=== PATIENT | female | born 1965 | race Hispanic/Latino ===

== ENCOUNTER 2021-01-05 12:40 | Emergency (ER) | payer SELFPAY ==
--- NOTE | 2021-01-05 13:39 | RAD REPORT ---
EXAM DESCRIPTION: CT - Head Brain Wo Cont - 01/05/2021 1:25 pm CLINICAL HISTORY: headdate, dizziness COMPARISON: HEAD BRAIN W O CONTRAST dated 12/29/2007 TECHNIQUE: Axial 5 mm thick images of the head were obtained without IV contrast. All CT scans are performed using dose optimization technique as appropriate and may include automated exposure control or mA/KV adjustment according to patient size. FINDINGS: No intracranial hemorrhage, mass, edema or shift of mid-line structures. No acute infarcti on changes seen. No abnormal extra-axial fluid collections. Ventricles are normal. No measurable atro phy or chronic ischemic change. Physiologic calcifications are present. Mastoid air cells and visualized portions of the paranasal sinuses are clear. No acute bony findings. IMPRESSION: Negative non-contrast CT head examination.
[2021-01-05] MEDS ORDERED: NA CHLORIDE 0.9% 500 ML ONE (13:51)
[2021-01-05] MEDS ORDERED: MORPHINE 4 MG/ML SYR ONE (13:51)
[2021-01-05] MEDS ORDERED: ONDANSETRON 4 MG/2 ML VIAL ONE (13:51)
--- NOTE | 2021-01-05 14:05 | RAD REPORT ---
EXAM DESCRIPTION: RAD - Chest Single View - 01/05/2021 1:58 pm CLINICAL HISTORY: SOB, recent positive COVID diagnosis COMPARISON: CT chest January 03, portable chest January 03 TECHNIQUE: AP portable chest image was obtained 01/05/2021 1:58 pm . FINDINGS: Minimal interstitial and patchy alveolar opacities are present in the lower left lung fiel d. Pattern is similar or slightly less prominent than seen on the CT study. There is minimal left bas e atelectasis at the diaphragm. No failure or volume overload. Heart and vasculature are normal. No measurable pleural effusion and no pneumothorax. No acute bony abnormality seen. No acute aortic findings suspected. IMPRESSION: Remnant pneumonia in the lower left lung field. No new or progressive finding from prior studies.
[2021-01-05 14:36] LABS: Protime INR 1.09
[2021-01-05 14:41] LABS: Absolute Lymphocytes (CBC) 0.9 K/uL (0.7-4.9); Basophils % 0.1 % (0-1.3); Hematocrit 41.6 % (36.0-45.0); Lymphocytes % 18.7 % (15.3-44.8); MPV 9.3 fL (7.6-11.3); RBC Red Blood Cell Count 4.59 M/uL (3.86-4.86)
[2021-01-05 14:49] LABS: Albumin 3.7 g/dL (3.4-5.0); Bilirubin Direct 0.1 mg/dL (0-0.2); Bilirubin Total 0.4 mg/dL (0.2-1.0); Potassium 3.3 mmol/L (3.5-5.1); Protein, Total 8.2 g/dL (6.4-8.2); Troponin (Emerg Dept Use Only) 0.07 ng/mL (0.0-0.045)
--- NOTE | 2021-01-05 15:30 | RAD REPORT ---
EXAM DESCRIPTION: CT - Chest For Pe Angio - 01/05/2021 3:21 pm CLINICAL HISTORY: chest pain, sob COMPARISON: Chest For Pe Angio dated 01/03/2021; Chest Single View dated 01/05/2021 TECHNIQUE: Dynamically enhanced 3 mm thick images of the chest were obtained during administration o f approximately 150mL Isovue 370 IV contrast. Coronal and oblique MIP reconstruction images were gene rated and reviewed. Exam utilizes a protocol to evaluate the pulmonary arterial tree. All CT scans are performed using dose optimization technique as appropriate and may include automated exposure control or mA/KV adjustment according to patient size. FINDINGS: No pulmonary emboli are identified. The aorta as imaged shows no acute or suspicious finding. No pericardial thickening or effusion. Scattered ground-glass and alveolar opacities are present throughout the lung whiteside primarily in a p eripheral distribution. Findings are more pronounced in each posterior gutter. History indicates a re cent COVID-19 infection. No pleural effusion or pleural thickening. No mediastinal or hilar suspicious masses. No chest wall masses or abnormal axillary lymphadenopathy. Heart size is prominent. No pericardial effusion. IMPRESSION: No pulmonary emboli identified. Mild to moderate COVID-19 pneumonia pattern.Pattern is similar to the January 03 CT chest study.
[2021-01-05] MEDS ORDERED: FENTANYL CITR 100 MCG/2 ML ONE (15:33)
--- NOTE | 2021-01-05 15:34 | RAD REPORT ---
EXAM DESCRIPTION: CT - Abdomen Pelvis W Contrast - 01/05/2021 3:21 pm CLINICAL HISTORY: ABD PAIN COMPARISON: No comparisons TECHNIQUE: Biphasic, helical CT imaging of the abdomen and pelvis was performed following 100 ml non -ionic IV contrast. No oral contrast administered. All CT scans are performed using dose optimization technique as appropriate and may include automated exposure control or mA/KV adjustment according to patient size. FINDINGS: Bilateral lung base pneumonia findings are detailed in separate report. The liver, spleen, and pancreas show no suspicious findings. Liver shows a diffuse fatty infiltration pattern. Cholecystectomy clips are present. Biliary tree dilatation present. Biliary dilatation with in normal range for post cholecystectomy status. Symmetric renal function is seen with no hydronephrosis or suspicious renal mass. No pyelonephritis o r acute parenchymal process. No bladder abnormalities. No adrenal abnormalities. Approximately 4 cent imeter fundal fibroid present in the uterus. Right ovary is unremarkable. Left ovary appears to be cl osely approximated to the lateral margin of the uterus. A 2 centimeter rounded mass pelvic side wall on the left is favored to be lymph node. No other adenopathy is seen. This lymph node is nonspecific. No gross evidence for cervical abnormality. No dilated bowel loops or bowel wall thickening. No free air, free fluid or inflammatory stranding. No hernia, mass or bulky lymphadenopathy. No suspicious bony findings. IMPRESSION: Contrast enhanced CT abdomen and pelvis showing no acute or emergent finding. Nonacute findings detailed in the body of the report.
[2021-01-05 15:35] LABS: Blood Morphology Comment NOT SEEN (NOT SEEN); Platelet Estimate DECR; White Blood Cell Scan OK (OK)
--- NOTE | 2021-01-05 16:36 | P.CNS ---
Date of Consult: 01/05/21 Reason for Consult: ER evaluation Requesting Physician: Sachin Berger Primary Care Provider: Justine Lopez NP Chief Complaint: Fatigue, headache, muscle aches History of Present Illness: 55-year-old female with history of hypertension presented to the emergency room with fatigue, arthralgias, headache. Patient was recently admitted and discharge yesterday for Covid pneumonia. Patient was sent home with vitamin supplementation. No need for steroids was required. Her medications were adjusted due to low blood pressure. Since that time she has been noticing some headaches with fatigue. Daughter has given patient some Tylenol. She came to the ER for further evaluation. Extensive work-up in the ER was done. Patient was hypoxic. Blood pressure slightly elevated. Heart rate around 100-110. BMP improved since last visit. CBC improved since last visit. CT chest shows no significant change since January 03. CT abdomen unremarkable except fatty liver and fibroid uterus. CT head unremarkable. I was asked to evaluate patient for recommendations and consider treatment. Allergies Penicillins Allergy (Verified 01/03/21 20:21) Itching/Hives/Rash Home medications list reviewed: Yes Home Medications: Ascorbic Acid [Vitamin C*] 500 mg PO TID #90 tablet 01/04/21 Cholecalciferol (Vitamin D3) [Vitamin D 1000 Iu Tab*] 2,000 unit PO DAILY #60 tab 01/04/21 Metoprolol Tartrate 12.5 mg PO DAILY #30 tablet 01/04/21 Thiamine HCl [Vitamin B-1*] 100 mg PO DAILY #30 tablet 01/04/21 Zinc Sulfate [Zinc Sulfate*] 220 mg PO DAILY #30 cap 01/04/21 - Past Medical/Surgical History -: Hypertension -: History of breast cancer -: Fibroid uterus -: Fatty liver -: Right mastectomy -: Cholecystectomy -: Port-A-Cath insertion/removal Psychosocial/ Personal History: Unemployed, lives at home with her and family - Family History Mother Medical History: Hypertension, Cancer - Social History Smoking Status: Never smoker Alcohol use: No CD- Drugs: No Caffeine use: Yes Place of Residence: Home Review of Systems General: Chills, Weakness, Malaise Eyes: Unremarkable ENT: Unremarkable Respiratory: As per HPI Cardiovascular: Unremarkable Gastrointestinal: Unremarkable Genitourinary: Unremarkable Musculoskeletal: Back Pain, As per HPI Integumentary: Unremarkable Neurological: Weakness, Other Lymphatics: Unremarkable Physical Examination Laboratory Data (last 24 hrs) 01/05/21 14:10: PT 12.6 H, INR 1.09 01/05/21 14:10: WBC 4.70 D, Hgb 14.1, Hct 41.6, Plt Count 91 L 01/05/21 14:10: Sodium 137, Potassium 3.3 L, BUN 6 L, Creatinine 0.68, Glucose 108 H, Magnesium 2.0, Total Bilirubin 0.4, AST 30, ALT 35, Alkaline Phosphatase 87 Conclusions/Impression: COVID: Positive CT Chest 01/03/2021: COMPARISON: RAD THERAPY [facility] dated 02/01/2015 TECHNIQUE: CT angiogram of the pulmonary arteries was performed with MIP. All CT scans are performed using dose optimization technique as appropriate and may include automated exposure control or mA/KV adjustment according to patient size. FINDINGS: No evidence of pulmonary thromboembolism. No acute aortic finding demonstrated. Mild to moderate bilateral pulmonary opacities are present, greatest in the posterior lung bases, likely related to COVID-19 infection. No significant pericardial or pleural fluid. No concerning bony finding. Right mastectomy noted IMPRESSION: No evidence of pulmonary thromboembolism. [id number] pulmonary infiltrates likely related COVID-[address] Chest 01/05/2021: COMPARISON: Chest For Pe Angio dated 01/03/2021; Chest Single View dated 01/05/2021 TECHNIQUE: Dynamically enhanced 3 mm thick images of the chest were obtained during administration of approximately 150mL Isovue 370 IV contrast. Coronal and oblique MIP reconstruction images were generated and reviewed. Exam utilizes a protocol to evaluate the pulmonary arterial tree. All CT scans are performed using dose optimization technique as appropriate and may include automated exposure control or mA/KV adjustment according to patient size. FINDINGS: No pulmonary emboli are identified. The aorta as imaged shows no acute or suspicious finding. No pericardial thickening or effusion. Scattered ground-glass and alveolar opacities are present throughout the lung whiteside primarily in a peripheral distribution. Findings are more pronounced in each posterior gutter. History indicates a recent COVID-19 infection. No pleural effusion or pleural thickening. No mediastinal or hilar suspicious masses. No chest wall masses or abnormal axillary lymphadenopathy. Heart size is prominent. No pericardial effusion. IMPRESSION: No pulmonary emboli identified. Mild to moderate COVID-19 pneumonia pattern.Pattern is similar to the January [address] Ab: COMPARISON: No comparisons TECHNIQUE: Biphasic, helical CT imaging of the abdomen and pelvis was performed following 100 ml non-ionic IV contrast. No oral contrast administered. All CT scans are performed using dose optimization technique as appropriate and may include automated exposure control or mA/KV adjustment according to patient size. FINDINGS: Bilateral lung base pneumonia findings are detailed in separate report. The liver, spleen, and pancreas show no suspicious findings. Liver shows a diffuse fatty infiltration pattern. Cholecystectomy clips are present. Biliary tree dilatation present. Biliary dilatation within normal range for post cholecystectomy status. Symmetric renal function is seen with no hydronephrosis or suspicious renal mass. No pyelonephritis or acute parenchymal process. No bladder abnormalities. No adrenal abnormalities. Approximately 4 centimeter fundal fibroid present in the uterus. Right ovary is unremarkable. Left ovary appears to be closely approximated to the lateral margin of the uterus. A 2 centimeter rounded mass pelvic side wall on the left is favored to be lymph node. No other adenopathy is seen. This lymph node is nonspecific. No gross evidence for cervical abnormality. No dilated bowel loops or bowel wall thickening. No free air, free fluid or inflammatory stranding. No hernia, mass or bulky lymphadenopathy. No suspicious bony findings. IMPRESSION: Contrast enhanced CT abdomen and pelvis showing no acute or emergent finding. Nonacute findings detailed in the body of the report. CT Head: COMPARISON: HEAD BRAIN W O CONTRAST dated 12/29/2007 TECHNIQUE: Axial 5 mm thick images of the head were obtained without IV contrast. All CT scans are performed using dose optimization technique as appropriate and may include automated exposure control or mA/KV adjustment according to patient size. FINDINGS: No intracranial hemorrhage, mass, edema or shift of mid-line structures. No acute infarction changes seen. No abnormal extra-axial fluid collections. Ventricles are normal. No measurable atrophy or chronic ischemic change. Physiologic calcifications are present. Mastoid air cells and visualized portions of the paranasal sinuses are clear. No acute bony findings. IMPRESSION: Negative non-contrast CT head examination. Physical Exam: GENERAL: The patient is a well-developed, well-nourished, in no apparent distress. Alert and oriented x3. Mild elevated blood pressure. VITAL SIGNS: Reviewed HEENT: Head is normocephalic and atraumatic. Extraocular muscles are intact. Pupils are equal, round, and reactive to light and accommodation. Nares appeared normal. Mouth is well hydrated and without lesions. Mucous membranes are moist. NECK: Supple. No carotid bruits. No lymphadenopathy or thyromegaly. LUNGS: Clear anteriorly. Slight decreased to the right base HEART: Mild tachycardia with rate around 100-105 ABDOMEN: Soft, nontender, and nondistended. Positive bowel sounds. No hepatosplenomegaly was noted. EXTREMITIES: Without any cyanosis, clubbing, rash, lesions or peripheral edema. NEUROLOGIC: The patient is oriented to person, place and time. Strength and sensation are grossly intact. Face is symmetric. SKIN: Normal color, turgor and temperature. No ulcerations or rashes noted. Impression: Myalgias, headache, fatigue secondary to bilateral Covid pneumonia without hypoxia Hypertension History of breast cancer Thrombocytopenia likely related to COVID improved Mild elevation in troponin likely ischemic demand related to COVID improved CT scan showing fatty liver and fibroid uterus Plan: Myalgias, headache, fatigue secondary to bilateral Covid pneumonia without hypoxia: Patient appears stable since she was last admitted. Case discussed at length with ER physician, patient and daughter. CT scan shows no significant change since CT scan done on 01/03/21. Mild to moderate Covid pneumonia noted. CT head unremarkable. CT abdomen shows fatty liver and fibroid uterus. Patient does not require hospitalization at this time. Patient would benefit with Regeneron as she is on day 6 since she was diagnosed with Covid. She is unvaccinated. Risks and benefits addressed in detail. Patient and daughter understand the risks and benefit. They want to proceed with Regeneron. Patient to receive Regeneron in the emergency room. Will recommend that the patient be discharged home with prednisone 20 mg 1 pill twice daily for 7 days then 1 pill once daily for 7 days. Patient to continue with zinc, thiamine, vitamin C and vitamin D. Recommend to continue incentive spirometer, proning and lying on her side. Continue with CDC guidelines on Covid isolation, handwashing, facemask use and social distancing. Recommend follow-up with PCP within 1 week to follow-up his hospitalization. Patient may establish care and follow-up with pulmonology within 1 week to follow-up this hospitalization and ER visit. If symptoms worsen patient may return. Patient may take Tylenol as needed for pain. No greater than 3 g/day of Tylenol. A limited supply of tramadol 1 pill 3 times a day as needed will be provided. Hypertension: Blood pressure medication was adjusted on her last visit. Lisinopril was discontinued and her metoprolol was decreased due to low blood pressure. Blood pressure elevated at this time with mild tachycardia. Recommend to increase metoprolol to 25 mg 1 pill twice daily. Recommend to maintain blood pressure less than 130/80. If blood pressure remains above 140/90 consider increasing metoprolol to 50 mg 1 pill twice daily. This can be done with the help of her PCP. Recommend follow-up with PCP this week to monitor her care. History of breast cancer: Patient with history of breast cancer. This was many years ago. Thrombocytopenia likely related to COVID improved: This has improved since the last CBC. This can be followed as an outpatient. Mild elevation in troponin likely ischemic demand related to COVID improved: This has improved since the last hospitalization. No significant EKG changes noted. Recommend follow-up as an outpatient with cardiology after treatment and resolution of Covid for further evaluation CT scan showing fatty liver and fibroid uterus: Recommend follow-up with PCP to further address. Fatty liver should be educated to the patient. Patient with fibroid uterus noted. Recommend gynecology evaluation as an outpatient to further monitor and address Code Status: Full Code Advanced Care Planning-30 minutes: Patient will be discharged home from the ER after Regeneron. Continue with above recommendations. Care discussed in detail with ER provider who agrees with plan of care. Time Spent Managing Pts care (In Minutes): 55
[2021-01-05] MEDS ORDERED: NA CHLORIDE 0.9% 250 ML ONE (17:06)
[2021-01-05] MEDS ORDERED: CASIRIVIMAB/IMDEVIMAB 10 ML VIAL ONE (17:06)
--- NOTE | 2021-01-05 17:57 | ER ---
Nurse's Notes [facility] Name: Annalisa Wade Age: 55 yrs Sex: Female : 1965 Arrival Date: 01/05/2021 Time: 12:40 Bed 20 Private MD: Diagnosis: Coronavirus infection, unspecified Presentation: 01/05 12:46 Chief complaint: Patient states: PT WAS RELEASED FROM HOSPITAL YESTERDAY MORNING AND aa5 C/O NOT FEELING WELL. PT C/O PAIN TO NECK PAIN, HEADACHE, AND BODY ACHES. PT'S DAUGHTER REPORTS HER HEART RATE WAS 125 AT HOME. POSITIVE COVID-19. Coronavirus screen: Client reports previous positive COVID test result. Ebola Screen: Patient negative for fever greater than or equal to 101.5 degrees Fahrenheit, and additional compatible Ebola Virus Disease symptoms. Initial Sepsis Screen: Does the patient meet any 2 criteria? HR > 90 bpm. Does the patient have a suspected source of infection? Yes:. Risk Assessment: Do you want to hurt yourself or someone else? Patient reports no desire to harm self or others. Onset of symptoms was December 2020. 12:46 Method Of Arrival: Ambulatory aa5 12:46 Acuity: MICKI 3 aa5 Triage Assessment: 12:45 General: Appears distressed, uncomfortable, Behavior is cooperative, appropriate for bp age, anxious. Pain: Complains of pain in chest. EENT: No deficits noted. Neuro: Level of Consciousness is awake, alert, obeys commands, Oriented to Appropriate for age. Cardiovascular: Rhythm is sinus tachycardia. Respiratory: No deficits noted. Reports shortness of breath Breath sounds are clear bilaterally. GI: No signs and/or symptoms were reported involving the gastrointestinal system. : No signs and/or symptoms were reported regarding the genitourinary system. Derm: No deficits noted. Musculoskeletal: No deficits noted. Historical: - Allergies: 12:49 PENICILLINS; aa5 - Home Meds: 12:49 lisinopril Oral [Active]; Metoprolol Tartrate Oral [Active]; aa5 - PMHx: 12:49 Hypertensive disorder; aa5 - Immunization history:: Client reports having NOT received the Covid vaccine. - Social history:: Smoking status: Patient denies any tobacco usage or history of. Screenin:45 Abuse screen: Denies threats or abuse. Denies injuries from another. Nutritional bp screening: No deficits noted. Tuberculosis screening: No symptoms or risk factors identified. Fall Risk None identified. Assessment: 12:45 General: SEE TRIAGE NOTE. bp 15:03 Reassessment: No changes from previously documented assessment. Patient and/or family bp updated on plan of care and expected duration. Pain level reassessed. Patient is alert, oriented x 3, equal unlabored respirations, skin warm/dry/pink. PT TO CT. 17:00 Reassessment: No changes from previously documented assessment. Patient and/or family bp updated on plan of care and expected duration. Pain level reassessed. Patient is alert, oriented x 3, equal unlabored respirations, skin warm/dry/pink. 18:57 Reassessment: PT D/C HOME AMBULATORY WITH FAMILY, DX WITH CORONAVIRUS. bp Vital Signs: 12:45 BP 139 / 92; Pulse 106; Resp 18; Temp 100.0; Pulse Ox 98% on R/A; Weight 67.13 kg; aa5 Height 5 ft. 3 in. (160.02 cm); Pain 0/10; 15:00 BP 145 / 77; Pulse 89; Resp 16; Pulse Ox 100% ; bp 17:00 BP 121 / 69; Pulse 100; Resp 16; Pulse Ox 99% ; bp 19:00 BP 139 / 76; Pulse 100; Resp 16; Temp 98.9; Pulse Ox 99% ; bp 12:45 Body Mass Index 26.22 (67.13 kg, 160.02 cm) aa5 ED Course: 12:40 Patient arrived in ED. as 12:45 Arm band placed on. aa5 12:45 Patient has correct armband on for positive identification. Bed in low position. Call bp light in reach. Side rails up X2. monitoring tech on. Pulse ox on. NIBP on. 12:49 Triage completed. aa5 12:55 Beto Root, MEREDITH is Primary Nurse. bp 12:55 Sachin Berger PA is PHCP. jmm 12:55 David Estrella MD is Attending Physician. jmm 13:25 CT Head Brain wo Cont In Process Unspecified. EDMS 13:30 Inserted saline lock: 20 gauge in left antecubital area, using aseptic technique. bp 13:57 XRAY Chest (1 view) In Process Unspecified. EDMS 15:20 CT Chest For PE Angio In Process Unspecified. EDMS 15:20 CT Abd/Pelvis - IV Contrast Only In Process Unspecified. EDMS 19:01 No provider procedures requiring assistance completed. IV discontinued, intact, bp bleeding controlled, No redness/swelling at site. Pressure dressing applied. Patient maintains SpO2 saturation greater than 95% on room air. Administered Medications: 13:30 Drug: NS 0.9% 500 ml Route: IV; Rate: 500 bolus; Site: left upper arm; bp 13:30 Drug: morphine 4 mg Route: IVP; Site: left upper arm; bp 17:06 Follow up: Response: Pain is decreased bp 13:30 Drug: Zofran (Ondansetron) 4 mg Route: IVP; Site: left upper arm; bp 17:06 Follow up: Response: No adverse reaction bp 15:00 Drug: fentaNYL (PF) 50 mcg Route: IVP; Site: left forearm; bp 17:06 Follow up: Response: Pain is decreased bp 17:00 Drug: Casirivimab-Imdevimab Dose Pack 120 mg/mL-120 mg/mL (EUA) 1 application Route: bp IV; Rate: calculated rate; Site: left upper arm; 19:05 Follow up: IV Status: Completed infusion; IV Intake: 250ml bp Intake: 19:05 IV: 250ml; Total: 250ml. bp Outcome: 17:57 Discharge ordered by . [email or web address] 19:03 Discharged to home ambulatory. bp 19:03 Condition: stable 19:03 Discharge instructions given to patient, Instructed on discharge instructions, follow up and referral plans. Demonstrated understanding of instructions, follow-up care. 19:05 Patient left the ED. bp Signatures: Dispatcher [employer] EDMS Sachin Berger PA PA jmm Martinez, Amelia as Calderon, Audri, RN RN aa5 Beto Root RN RN bp
--- NOTE | 2021-01-05 17:57 | EDPHYS ---
Physician Documentation [facility] Name: Annalisa Wade Age: 55 yrs Sex: Female : 1965 Arrival Date: 01/05/2021 Time: 12:40 Bed 20 Private MD: SINTIA Physician David Estrella HPI: 01/05 12:56 This 55 yrs old Female presents to ER via Ambulatory with complaints of jmm Palpitations, Chest Pain, covid+. 12:56 The patient has shortness of breath at rest. Onset: The symptoms/episode began/occurred jmm gradually. Duration: The symptoms are continuous, and are steadily getting worse. The patient's shortness of breath is aggravated by nothing, is alleviated by nothing. Associated signs and symptoms: Pertinent positives: fever, Pertinent negatives:. Historical: - Allergies: 12:49 PENICILLINS; aa5 - Home Meds: 12:49 lisinopril Oral [Active]; Metoprolol Tartrate Oral [Active]; aa5 - PMHx: 12:49 Hypertensive disorder; aa5 - Immunization history:: Client reports having NOT received the Covid vaccine. - Social history:: Smoking status: Patient denies any tobacco usage or history of. ROS: 12:56 Constitutional: Positive for fever. jmm 12:56 Cardiovascular: Positive for chest pain. 12:56 Respiratory: Positive for cough, shortness of breath. 12:56 All other systems are negative. Exam: 12:56 Constitutional: This is a well developed, well nourished patient who is awake, alert, jmm and in no acute distress. Head/Face: atraumatic. Eyes: EOMI, no conjunctival erythema appreciated ENT: Moist Mucus Membranes Neck: Trachea midline, Supple Chest/axilla: Normal chest wall appearance and motion. Cardiovascular: Regular rate and rhythm. No edema appreciated Respiratory: Normal respirations, no respiratory distress appreciated Abdomen/GI: Non distended, soft Back: Normal ROM Skin: General appearance color normal MS/ Extremity: Moves all extremities, no obvious deformities appreciated, no edema noted to the lower extremities Neuro: Awake and alert, normal gait Psych: Behavior is normal, Mood is normal, Patient is cooperative and pleasant Vital Signs: 12:45 BP 139 / 92; Pulse 106; Resp 18; Temp 100.0; Pulse Ox 98% on R/A; Weight 67.13 kg; aa5 Height 5 ft. 3 in. (160.02 cm); Pain 0/10; 15:00 BP 145 / 77; Pulse 89; Resp 16; Pulse Ox 100% ; bp 17:00 BP 121 / 69; Pulse 100; Resp 16; Pulse Ox 99% ; bp 19:00 BP 139 / 76; Pulse 100; Resp 16; Temp 98.9; Pulse Ox 99% ; bp 12:45 Body Mass Index 26.22 (67.13 kg, 160.02 cm) aa5 MDM: 12:56 Patient medically screened. irina 17:56 Data reviewed: vital signs, nurses notes. Counseling: I had a detailed discussion with jennifer the patient and/or guardian regarding: the historical points, exam findings, and any diagnostic results supporting the discharge/admit diagnosis, lab results, radiology results, the need for outpatient follow up, to return to the emergency department if symptoms worsen or persist or if there are any questions or concerns that arise at home. ED course: Dr. Boston evaluate the patient after evaluation recommended Regeneron therapy as well as change in home medications to metoprolol 25 twice daily and prednisone on a 14-day course. 01/05 13:08 Order name: Basic Metabolic Panel [facility] 01/05 13:08 Order name: CBC with Diff [facility] 01/05 13:08 Order name: LFT's; Complete Time: 14:50 [facility] 01/05 13:08 Order name: Magnesium; Complete Time: 14:50 [facility] 01/05 13:08 Order name: NT PRO-BNP; Complete Time: 14:50 [facility] 01/05 13:08 Order name: PT-INR; Complete Time: 14:49 [facility] 01/05 13:08 Order name: Troponin (emerg Dept Use Only); Complete Time: 14:50 [facility] 01/05 13:08 Order name: XRAY Chest (1 view); Complete Time: 14:15 [facility] 01/05 13:08 Order name: CT Head Brain wo Cont; Complete Time: 13:55 [facility] 01/05 13:08 Order name: Basic Metabolic Panel; Complete Time: 14:50 [facility] 01/05 13:08 Order name: CBC with Automated Diff; Complete Time: 15:36 EDOR 01/05 14:43 Order name: CBC Smear Scan; Complete Time: 15:36 EDMS 01/05 14:50 Order name: CT Chest For PE Angio; Complete Time: 15:32 [facility] 01/05 14:50 Order name: CT Abd/Pelvis - IV Contrast Only; Complete Time: 15:36 [facility] 01/05 13:08 Order name: EKG; Complete Time: 13:08 [facility] 01/05 13:08 Order name: Cardiac monitoring; Complete Time: 13:11 [facility] 01/05 13:08 Order name: EKG - Nurse/Tech; Complete Time: 14:48 [facility] 01/05 13:08 Order name: IV Saline Lock; Complete Time: 14:48 [facility] 01/05 13:08 Order name: Labs collected and sent; Complete Time: 14:48 [facility] 01/05 13:08 Order name: O2 Per Protocol; Complete Time: 13:11 [facility] 01/05 13:08 Order name: O2 Sat Monitoring; Complete Time: 13:11 [facility] Administered Medications: 13:30 Drug: NS 0.9% 500 ml Route: IV; Rate: 500 bolus; Site: left upper arm; bp 13:30 Drug: morphine 4 mg Route: IVP; Site: left upper arm; bp 17:06 Follow up: Response: Pain is decreased bp 13:30 Drug: Zofran (Ondansetron) 4 mg Route: IVP; Site: left upper arm; bp 17:06 Follow up: Response: No adverse reaction bp 15:00 Drug: fentaNYL (PF) 50 mcg Route: IVP; Site: left forearm; bp 17:06 Follow up: Response: Pain is decreased bp 17:00 Drug: Casirivimab-Imdevimab Dose Pack 120 mg/mL-120 mg/mL (EUA) 1 application Route: bp IV; Rate: calculated rate; Site: left upper arm; 19:05 Follow up: IV Status: Completed infusion; IV Intake: 250ml bp Disposition: 01/06 16:21 Co-signature as Attending Physician, David Estrella MD I agree with the assessment and irina plan of care. Disposition Summary: 01/05/21 17:57 Discharge Ordered Location: Home [facility] Condition: Stable [facility] Diagnosis - Coronavirus infection, unspecified [facility] Followup: [facility] - With: Private Physician - When: 2 - 3 days - Reason: Recheck today's complaints, Continuance of care, Re-evaluation by your physician Discharge Instructions: - Discharge Summary Sheet parth - COVID-19 [facility] Forms: - Medication Reconciliation Form [facility] - Thank You Letter [facility] - Antibiotic Education [facility] - Prescription Opioid Use [facility] Prescriptions: - Prednisone 20 mg Oral Tablet - take 3 tablets by ORAL route once daily for 14 days Please take 2 tabs by mouth jmm daily for 7 days and then take 1 tab by mouth daily for 7 days; 21 tablet; Refills: 0, Product Selection Permitted - Metoprolol Tartrate 25 mg Oral Tablet - take 1 tablet by ORAL route 2 times per day with a meal; 20 tablet; Refills: 0, [facility] Product Selection Permitted - Tramadol 50 mg Oral Tablet - take 1 tablet by ORAL route every 8 hours as needed; 12 tablet; Refills: 0, [facility] Product Selection Permitted Signatures: Dispatcher [employer] David Daniels MD MD cha Mickail, Joel, PA PA jmm Calderon, Audri, RN RN aa5 Beto Root RN RN bp
[2021-01-05 19:22] VITALS: O2SAT 99
[2021-01-05 19:24] VITALS: BP 139/76; TEMP 98.9
--- NOTE | 2021-01-07 09:01 | EKG ---
Test Date: 2021-01-05 Test Time: 12:49:42 Almond Blancher Operator: BETHANIE MEASUREMENT RESULTS: Intervals: Rate: 91 ND: 150 QRSD: 80 QT: 358 QTc: 440 [place]: P: 54 ND: 150 QRS: -3 T: 29 INTERPRETIVE STATEMENTS: Normal sinus rhythm Possible Left atrial enlargement Left ventricular hypertrophy Abnormal ECG Compared to ECG 01/03/2021 18:00:56 Left ventricular hypertrophy now present Electronically Signed On 01-07-21 08:57:40 CDT by Dru Godwin
== END 2021-01-05 19:05 | disposition home or self-care (01) ==
LOC: ER 12:40
DX: U07.1 COVID-19 (principal); I10 Essential (primary) hypertension; Z88.0 Allergy status to penicillin
CPT/HCPCS: 36415; 70450; 71045; 71275; 74177; 80048; 80076; 83735; 83880; 84484; 85025; 85610; 93005; 96365; 96366; 96375; 99285; J2405; J3010; J7040; J7050; Q9967

== ENCOUNTER 2021-09-07 11:44 | Inpatient (IN) | payer SELFPAY ==
--- OUTSIDE RECORDS SUMMARY | 2021-09-07 11:46 | XMS REPORT | Continuity of Care Document ---
:1965 Author Organization [facility] t Address [address] [place] [address] Care Team Providers Name Role Phone Brayan MENEZES Attending Clinician Unavailable Problems This patient has no known problems. Allergies, Adverse Reactions, Alerts Allergy Allergy Status Severity Reaction(s) Onset Inactive Treating Comm ents Source Name Type Date Date Clinician PENICILL Drug Active Anaphylaxis Uni vers INS Class 6-19 ity of 00:00: [address] Medications This patient has no known medications. Procedures This patient has no known procedures. Encounters Start End Encounter Admission Attending Care Care Encounter Source Date/Time Date/Time Type Type Clinicians Facility Department ID 2019-10-05 2019-10-05 [id number] 14:30:00 14:30:00 ELOY [id number] [facility] 2019-10-05 2019-10-05 Outpatient Brayan MENEZES [facility] [id number] [facility] 14:30:00 14:30:00 ELOY carras[facility] o [facility] Results Test Description Test Time Test Comments Results Result Comments Source COMPREHENSIVE METABOLIC PANEL 2021-05-30 06:48:44 Test Item Value Reference Range Interpretation Comme nts GLUCOSE (test code = 2217) 178 MG/DL 70-99 H BUN (test code = 2208) 8 MG/DL 6-20 CREATININE (test code = 0.59 MG/DL 0.60-1.30 L 2213) eGFR (2020 CKD-EPI) (test 105 ML/MIN/1.73 >60 code = 90583) CALC BUN/CREAT (test code = 14 RATIO 6-28 5) SODIUM (test code = 2231) 143 MEQ/L 133-146 POTASSIUM (test code = 2228) 4.8 MEQ/L 3.5-5.4 CHLORIDE (test code = 2215) 103 MEQ/L 95-107 CARBON DIOXIDE (test code = 26 MEQ/L 19-31 2205) CALCIUM (test code = 220) 9.8 MG/DL 8.5-10.5 PROTEIN, TOTAL (test code = 7.6 G/DL 6.1-8.3 2228) ALBUMIN (test code = 2201) 4.6 G/DL 3.5-5.2 CALC GLOBULIN (test code = 3.0 G/DL 1.9-3.7 2239) CALC A/G RATIO (test code = 1.5 RATIO 1.0-2.6 2233) BILIRUBIN, TOTAL (test code 0.5 MG/DL See_Comment [Automated message] The = 2206) system which ge nerated this result transmit jihan reference range : <=1.2. The reference range was not used to interpr et this result as fernando l/abnormal. ALKALINE PHOSPHATASE (test 128 U/L 40-136 code = 2204) AST (test code = 2218) 34 U/L 9-40 ALT (test code = 2219) 59 U/L 5-40 H LIPID [id number] 06:48:44 Test Item Value Reference Range Interpretation Comments CHOLESTEROL (test 201 MG/DL <200 H code = 2210) TRIGLYCERIDES (test 201 MG/DL <150 H code = 2232) HDL CHOLESTEROL (test 47 MG/DL >39 code = 2220) CALC LDL CHOL (test 122 MG/DL <100 H NOTE: C ALCULATED LDL code = 2237) IS BASED ON ADI-DUNBAR METHOD WHICHINCLUDES ADJUSTABLE TRIGLYCERIDE:VL DL CHOLESTEROL RAT IO.THIS FACTOR VARIES B Y MEASURED TRIGLY CERIDE AND NON-HDLCHOL ESTEROL CONCENTRATIONS WITH INCREASED CALCU LATED LDL SEENIN HIGH ER TRIGLYCERIDE OR LOWER NON-HDL SPECIME NS. FOR MOREINFORMATION , SEE CLIENT ANNOUNCE MENT AT [email or web address] [email or web address] RATIO LDL/HDL 2.60 RATIO <3.22 (test code = 2238) HEMOGLOBIN [id number] 06:35:03 Test Item Value Reference Range Interpretation Comments HEMOGLOBIN A1c (test 8.9 % 4.2-5.6 H DANISH DIABETES code = 87775) ASSOCIATION IDELINES FOR HGB A1C: PREDIABETES/INC REASED RISK . . . . . . . 5.7 -6.4% DIAGNOSIS OF D IABETES . . . . . . . . . > =6.5% WITH CONFIRM ATION OR APPROPRIATE SYM PTOMS NOTE: ASSAY MAY BE AFFECTED BY HEMOGLOBINOP ATHIES (SICKLE SHONNA L ANEMIA, S-C DISEASE, OTHERS ) OR ARTIFICIALLY LO WERED BY DECREASED RED C ELL SURVIVAL (HEMOLYTIC ANEM IAS, BLOOD LOSS, ETC.) . CONSIDER ALTERNATE TESTI NG OR LABORATORY CONS ULTATION. UNLESS OTHER COLVIN INDICATED, ALL TESTING PERFORMED [facility] [address] [place] [id number] CLINICAL AIDE: MERCEDES TRONCOSO M.D. CLIA NUMBER [id number] CAP ACCREDITATION N O. [id number]
--- NOTE | 2021-09-07 12:16 | RAD REPORT ---
EXAM DESCRIPTION: RAD - Chest Single View - 09/07/2021 12:09 pm CLINICAL HISTORY: CHEST PAIN Chest pain. COMPARISON: Chest Single View dated 01/05/2021; Chest Single View dated 01/03/2021; CHEST SINGLE VIE W dated 04/26/2008; CHEST PA AND LAT 2 VIEW dated 08/26/2005 FINDINGS: Portable technique limits examination quality. The lungs are grossly clear. The heart is normal in size. No displaced fractures. IMPRESSION: No acute intrathoracic process suspected.
[2021-09-07] MEDS ORDERED: ASPIRIN 81 MG CHEWABLE TABLET ONE (12:19)
[2021-09-07 12:22] LABS: Absolute Lymphocytes (CBC) 1.5 K/uL (0.7-4.9); Hematocrit 42.3 % (36.0-45.0); Lymphocytes % 30.3 % (15.3-44.8); MCV 90.2 fL (80-100); MPV 9.3 fL (7.6-11.3); RBC Red Blood Cell Count 4.69 M/uL (3.86-4.86)
[2021-09-07 12:35] LABS: Potassium 3.5 mmol/L (3.5-5.1)
[2021-09-07 12:37] LABS: Troponin High Sensitivity 100.1 pg/mL (<58.9)
--- NOTE | 2021-09-07 13:11 | EDPHYS ---
Physician Documentation [facility] Name: Annalisa Au Age: 56 yrs Sex: Female : 1965 Arrival Date: 09/07/2021 Time: 11:45 Bed 20 Private MD: ED Physician Cain Christianson HPI: 09/07 12:35 This 56 yrs old Female presents to ER via Ambulatory with complaints of kb Weakness, Nausea. 12:35 The patient has not experienced similar symptoms in the past. The patient has not kb recently seen a physician. 12:35 The patient or guardian reports chest pain that is located primarily in the chest kb diffusely. Onset: yesterday. The pain does not radiate. Associated signs and symptoms: Pertinent positives: nausea, near-syncope. The chest pain is described as a pressure. Duration: The patient or guardian reports a single episode. Modifying factors: The symptoms are alleviated by nothing. the symptoms are aggravated by nothing. Severity of pain: At its worst the pain was moderate in the emergency department the pain is unchanged. Historical: - Allergies: 11:50 PENICILLINS; aa5 - Home Meds: 11:50 metformin 500 mg Oral tab 1 tab 2 times per day [Active]; metoprolol succinate 50 mg aa5 oral Tb24 once daily [Active]; lisinopril 20 mg Oral tab once daily [Active]; - PMHx: 11:50 Hypertensive disorder; aa5 11:50 Diabetes mellitus; Breast Cancer; aa5 - PSHx: 11:50 Right Mastectomy; aa5 - Immunization history:: Adult Immunizations unknown. - Social history:: Smoking status: Patient denies any tobacco usage or history of. ROS: 12:34 Constitutional: Negative for fever, chills, and weight loss. kb 12:34 Cardiovascular: Positive for chest pain, Negative for edema, orthopnea, palpitations, paroxysmal nocturnal dyspnea. 12:34 Neuro: Positive for near syncope, weakness. 12:34 All other systems are negative. 12:34 Abdomen/GI: Positive for nausea. kb Exam: 12:34 Constitutional: This is a well developed, well nourished patient who is awake, alert, kb and in no acute distress. Head/Face: Normocephalic, atraumatic. ENT: Moist Mucous membranes Cardiovascular: Regular rate and rhythm with a normal S1 and S2. No gallops, murmurs, or rubs. No pulse deficits. Respiratory: Respirations even and unlabored. No increased work of breathing. Talking in full sentences Abdomen/GI: Soft, non-tender. No distention Skin: Warm, dry with normal turgor. Normal color. MS/ Extremity: Pulses equal, no cyanosis. Neurovascular intact. Full, normal range of motion. Neuro: Awake and alert, GCS 15, oriented to person, place, time, and situation. Moves all extremities. Normal gait. Psych: Awake, alert, with orientation to person, place and time. Behavior, mood, and affect are within normal limits. 12:34 ECG was reviewed by the Attending Physician. Vital Signs: 11:48 BP 194 / 107; Pulse 79; Resp 18 S; Temp 98.0(TE); Pulse Ox 99% on R/A; Weight 69.4 kg aa5 (R); Height 5 ft. 3 in. (160.02 cm) (R); 12:12 BP 153 / 88 Supine; Pulse 76; mb7 12:12 BP 137 / 96 Standing; Pulse 88; mb7 13:40 BP 140 / 92; Pulse 65; Resp 17; Pulse Ox 97% on R/A; ll1 15:12 BP 153 / 93; Pulse 63; Resp 16; Pulse Ox 97% on R/A; ll1 11:48 Body Mass Index 27.10 (69.40 kg, 160.02 cm) aa5 MDM: 11:52 Patient medically screened. kb 12:35 Data reviewed: vital signs, nurses notes. Data interpreted: Pulse oximetry: on room air kb is 99 %. Interpretation: normal. 13:10 The patient was given aspirin in the Emergency Department. Counseling: I had a detailed kb discussion with the patient and/or guardian regarding: the historical points, exam findings, and any diagnostic results supporting the discharge/admit diagnosis, lab results, radiology results, the need for further work-up and treatment in the hospital. 09/07 11:53 Order name: Basic Metabolic Panel; Complete Time: 12:40 kb 09/07 11:53 Order name: CBC with Diff; Complete Time: 12:24 kb 09/07 11:53 Order name: Magnesium; Complete Time: 12:40 kb 09/07 11:53 Order name: NT PRO-BNP; Complete Time: 12:40 kb 09/07 11:53 Order name: Troponin HS; Complete Time: 12:40 kb 09/07 13:08 Order name: COVID-19 SARS RT PCR (Document "Date of Onset" if Symptomatic); Complete kb Time: 14:35 09/07 11:53 Order name: XRAY Chest (1 view); Complete Time: 12:24 kb 09/07 11:53 Order name: EKG; Complete Time: 11:54 kb 09/07 11:53 Order name: Cardiac monitoring; Complete Time: 12:22 kb 09/07 11:53 Order name: EKG - Nurse/Tech; Complete Time: 12:22 kb 09/07 11:53 Order name: IV Saline Lock; Complete Time: 12:11 kb 09/07 11:53 Order name: Labs collected and sent; Complete Time: 12:11 kb 09/07 13:31 Order name: Urine Dipstick-Ancillary; Complete Time: 13:52 EDMS 09/07 11:53 Order name: O2 Per Protocol; Complete Time: 12:10 kb 09/07 11:53 Order name: O2 Sat Monitoring; Complete Time: 12:10 kb 09/07 11:53 Order name: Orthostatics; Complete Time: 12:11 kb 09/07 11:53 Order name: Urine Dipstick-Ancillary (obtain specimen); Complete Time: 13:29 kb EC:34 Rate is 66 beats/min. Rhythm is regular. QRS [place] is Normal. [place] interval is normal at kb 164 msec. QRS interval is normal at 80 msec. QT interval is normal at 448 msec. Administered Medications: 12:17 Drug: Aspirin Chewable Tablet 324 mg Route: PO; ll1 12:41 Follow up: Response: No adverse reaction ll1 Disposition Summary: 09/07/21 13:11 Hospitalization Ordered Hospitalization Status: Observation kb Provider: Devonte Zhu Location: Telemetry/MedSurg (observation) kb Condition: Stable kb Problem: new kb Symptoms: are unchanged kb Bed/Room Type: Standard Room Assignment: 208(09/07/21 14:43) dw Diagnosis - Chest pain, unspecified kb - Syncope Near kb Forms: - Medication Reconciliation Form kb - SBAR form kb Addendum: 09/15/2021 17:55 Co-signature as Attending Physician, Cain Christianson MD. parth a2 Signatures: Dispatcher [employer] Patricia Ceballos, JOVON-Bakari PUBLIC HE[employer] TE[employer]ER-Elda Rivas RN RN dw Nica Woods RN RN aa5 Cain Christianson MD MD ma2 Yonas Carnes RN RN ll1 Corrections: (The following items were deleted from the chart) 09/07 14:43 13:11 kb deniz
--- NOTE | 2021-09-07 13:11 | ER ---
Nurse's Notes [facility] Name: Annalisa Au Age: 56 yrs Sex: Female : 1965 Arrival Date: 09/07/2021 Time: 11:45 Bed 20 Private MD: Diagnosis: Chest pain, unspecified;Syncope Near Presentation: 09/07 11:48 Chief complaint: Patient states: generalized weakness, nausea that began yesterday. Pt aa5 also reports chest pressure. Coronavirus screen: At this time, the client does not indicate any symptoms associated with coronavirus-19. Ebola Screen: Patient denies travel to an Ebola-affected area in the 21 days before illness onset. Initial Sepsis Screen: Does the patient meet any 2 criteria? No. Patient's initial sepsis screen is negative. Does the patient have a suspected source of infection? No. Patient's initial sepsis screen is negative. Risk Assessment: Do you want to hurt yourself or someone else? Patient reports no desire to harm self or others. Onset of symptoms was August 2021. 11:48 Acuity: MICKI 3 aa5 11:48 Method Of Arrival: Ambulatory aa5 Historical: - Allergies: 11:50 PENICILLINS; aa5 - Home Meds: 11:50 metformin 500 mg Oral tab 1 tab 2 times per day [Active]; metoprolol succinate 50 mg aa5 oral Tb24 once daily [Active]; lisinopril 20 mg Oral tab once daily [Active]; - PMHx: 11:50 Hypertensive disorder; aa5 11:50 Diabetes mellitus; Breast Cancer; aa5 - PSHx: 11:50 Right Mastectomy; aa5 - Immunization history:: Adult Immunizations unknown. - Social history:: Smoking status: Patient denies any tobacco usage or history of. Screenin:42 Abuse screen: Denies threats or abuse. Nutritional screening: No deficits noted. ll1 Tuberculosis screening: No symptoms or risk factors identified. Fall Risk IV access (20 points). Gait- Weak (10 pts.). Total Campbell Fall Scale indicates Low Risk Score (25-44 pts). Fall prevention measures have been instituted. Side Rails Up X 2 Placed close to Nursing Station Frequent Obs/Assesments occuring Family Present and informed to notify staff if they need to leave bedside As available Patient and Family Educated on Fall Prevention Program and strategies. Assessment: 12:15 General: Appears uncomfortable, Behavior is calm, cooperative, appropriate for age. ll1 Pain: Complains of pain in chest Quality of pain is described as pressure, Pain began 1 day ago. Cardiovascular: Reports chest pain, fatigue, nausea. Respiratory: No deficits noted. 13:15 Reassessment: No changes from previously documented assessment. Patient and/or family ll1 updated on plan of care and expected duration. Pain level reassessed. Patient is alert, oriented x 3, equal unlabored respirations, skin warm/dry/pink. Patient states feeling better. 14:15 Reassessment: No changes from previously documented assessment. Patient and/or family ll1 updated on plan of care and expected duration. Pain level reassessed. Patient is alert, oriented x 3, equal unlabored respirations, skin warm/dry/pink. Vital Signs: 11:48 BP 194 / 107; Pulse 79; Resp 18 S; Temp 98.0(TE); Pulse Ox 99% on R/A; Weight 69.4 kg aa5 (R); Height 5 ft. 3 in. (160.02 cm) (R); 12:12 BP 153 / 88 Supine; Pulse 76; mb7 12:12 BP 137 / 96 Standing; Pulse 88; mb7 13:40 BP 140 / 92; Pulse 65; Resp 17; Pulse Ox 97% on R/A; ll1 15:12 BP 153 / 93; Pulse 63; Resp 16; Pulse Ox 97% on R/A; ll1 11:48 Body Mass Index 27.10 (69.40 kg, 160.02 cm) aa5 ED Course: 11:45 Patient arrived in ED. as 11:47 Patricia Meade FNP-C is PHCP. kb 11:47 Cain Christianson MD is Attending Physician. kb 11:50 Arm band placed on. aa5 11:54 Triage completed. aa5 11:56 Yonas Carnes, MEREDITH is Primary Nurse. ll1 12:11 XRAY Chest (1 view) In Process Unspecified. EDMS 12:12 Call light in reach. Side rails up X 1. Door closed. Noise minimized. Warm blanket mb7 given. 12:12 Inserted saline lock: 20 gauge in left antecubital area, using aseptic technique. Blood mb7 collected. 12:13 Basic Metabolic Panel Sent. mb7 12:13 CBC with Diff Sent. mb7 12:13 Magnesium Sent. mb7 12:13 Troponin HS Sent. mb7 12:13 NT PRO-BNP Sent. mb7 12:21 Client placed on continuous cardiac and pulse oximetry monitoring. NIBP monitoring mb7 applied. compliance monitor on. Pulse ox on. 12:21 EKG done, by ED staff, reviewed by Patricia MUNROE. mb7 13:11 Devonte Zhu is Hospitalizing Provider. kb 15:12 No provider procedures requiring assistance completed. Patient admitted, IV remains in ll1 place. Administered Medications: 12:17 Drug: Aspirin Chewable Tablet 324 mg Route: PO; ll1 12:41 Follow up: Response: No adverse reaction ll1 Medication: 13:42 VIS not applicable for this client. ll1 Outcome: 13:11 Decision to Hospitalize by Provider. kb 15:12 Admitted to Tele accompanied by tech, via wheelchair, room 208, with chart. ll1 15:12 Condition: stable 15:12 Instructed on the need for admit. 15:58 Patient left the ED. ss Signatures: Dispatcher [employer] EDMS Patricia Meade FNP-C FNP-Key Gregory as Nica Woods RN RN [email or web address] Maya Lincoln RN RN ss Yonas Carnes RN RN ll1 Sofia Golden mb7 Corrections: (The following items were deleted from the chart) 12:08 12:07 Inserted saline lock: 22 gauge in left forearm, using aseptic technique. Blood ll1 collected. ll1
[2021-09-07 13:31] LABS: Urine Blood Negative (Negative); Urine Glucose Negative (Negative); Urine Protein Negative (Negative); Urine Specific Gravity <=1.005 (1.005-1.030)
--- NOTE | 2021-09-07 14:06 | P.HP ---
Certification for Inpatient Patient admitted to: Observation With expected LOS: <2 Midnights Practitioner: I am a practitioner with admitting privileges, knowledge of patient current condition, hospital course, and medical plan of care. Services: Services provided to patient in accordance with Admission requirements found in Title 42 Section 412.3 of the Code of Federal Regulations Patient History Date of Service: 09/07/21 Reason for admission: Weakness, near syncope History of Present Illness: 56-year-old woman with a history of breast cancer status post right mastectomy, chemotherapy and radiation, history of hypertension was brought to the emergency department due to 1 week of malaise, progressive weakness followed by chest pressure and near syncope that occurred today. Patient is Faroese-speaking, so history was provided by her daughter who mentioned patient became more weak today and nearly passed out. Daughter reports fluctuating blood pressure readings with intermittent episodes of hypotension. Patient described chest pressure, nonradiating, no associated palpitation or coughing or shortness of breath. Her systolic blood pressure in the ED was up to 197. Labs in the ED show mildly elevated troponin, EKG unremarkable with no significant ischemic changes, chest x-ray showed no acute cardiopulmonary disease. She has no leukocytosis and renal function appear normal. Note that she was hospitalized December last year for COVID symptoms and was discharged after 1 day of hospitalization. COVID test is negative today. Patient is hospitalized for further management. Allergies Penicillins Allergy (Verified 01/03/21 20:21) Itching/Hives/Rash Home Medications: Lisinopril [Zestril] 1 tab PO DAILY 09/07/21 Metformin HCl 1 tab PO BID 09/07/21 Metoprolol Succinate [Toprol Xl*] 1 tab PO DAILY 09/07/21 - Past Medical/Surgical History -: Hypertension -: History of breast cancer -: Fibroid uterus -: Fatty liver -: Right mastectomy -: Cholecystectomy -: Port-A-Cath insertion/removal Psychosocial/ Personal History: Unemployed, lives at home with her and family - Family History Mother -: Hypertension, Cancer - Social History Smoking Status: Never smoker Alcohol use: No CD- Drugs: No Caffeine use: Yes Review of Systems Other: Patient denied any dysuria or increased urinary frequency. She denied any abdominal pain or nausea or vomiting. She denied any constipation or diarrhea. She denied any fever, runny nose or nasal congestion. Except as documented, all other systems reviewed and negative. Physical Examination - Physical Exam General: Alert, In no apparent distress HEENT: Mucous membr. moist/pink, Sclerae nonicteric Neck: Supple, JVD not distended Respiratory: Clear to auscultation bilaterally, Normal air movement Cardiovascular: No edema, Regular rate/rhythm, Normal S1 S2, No murmurs Capillary refill: <2 Seconds Gastrointestinal: Normal bowel sounds, Soft and benign, Non-distended, No tenderness Musculoskeletal: No swelling, No tenderness Integumentary: No rashes, No erythema, No cyanosis Neurological: Normal speech, Normal strength at 5/5 x4 extr, Cranial nerves 3-12 intact Lymphatics: No axilla or inguinal lymphadenopathy - Studies Laboratory Data (last 24 hrs) 09/07/21 12:05: WBC 5.0, Hgb 14.6, Hct 42.3, Plt Count 165 09/07/21 12:05: Sodium 138, Potassium 3.5, BUN 9, Creatinine 0.65, Glucose 124 H, Magnesium 2.0 Assessment and Plan - Problems (Diagnosis) (1) Chest pain Current Visit: Yes Status: Acute (2) Near syncope Current Visit: Yes Status: Acute (3) Hypertension Current Visit: Yes Status: Acute (4) History of breast cancer Current Visit: Yes Status: Acute (5) Malignant hypertension Current Visit: Yes Status: Acute - Plan Patient's principal complaint is a generalized weakness of unknown etiology. Symptoms associated with near syncope and elevated troponin. Heart failure is possible. No evidence of infection, no UTI or pneumonia Place patient under observation. Continue to trend troponin. Obtain echocardiogram. Start aspirin, Lipitor and metoprolol. Aggressive blood pressure control-Home antihypertensives and hydralazine as needed for BP spikes. We will add amlodipine for uncontrolled BP. Check orthostatic vitals. Cardiology consult. Screen for hormonal issues with cortisol level, TSH - Advance Directives Does patient have a Living Will: No Does patient have a Durable POA for Healthcare: No
[2021-09-07] MEDS ORDERED: NITROGLYCERIN 0.4 MG/TAB SL PRN (15:29)
[2021-09-07] MEDS ORDERED: MORPHINE 4 MG/ML SYR IV PRN (15:29)
[2021-09-07 16:26] VITALS: BMI 24.4
[2021-09-07] MEDS ORDERED: HYDROCODONE/APAP 5/325 MG TAB PO ONE (16:40)
[2021-09-07 16:47] LABS: Troponin High Sensitivity 96.9 pg/mL (<58.9)
[2021-09-07] MEDS: METOPROLOL XL 50 MG TAB PO SCH (17:39)
[2021-09-08 04:53] LABS: Absolute Lymphocytes (CBC) 1.9 K/uL (0.7-4.9); Hematocrit 40.5 % (36.0-45.0); Lymphocytes % 43.7 % (15.3-44.8); MCV 90.2 fL (80-100); MPV 9.3 fL (7.6-11.3); RBC Red Blood Cell Count 4.48 M/uL (3.86-4.86)
[2021-09-08 05:23] LABS: Potassium 3.2 mmol/L (3.5-5.1); Thyroid Stimulating Hormone 3.45 uIU/mL (0.360-3.740)
[2021-09-08] MEDS: METOPROLOL XL 50 MG TAB PO SCH ×2 (06:05→17:45)
[2021-09-08] MEDS: ASPIRIN EC 81 MG TAB PO SCH (09:00)
[2021-09-08] MEDS: lisinopriL 20 MG TAB PO SCH (09:00)
[2021-09-08] MEDS: ENOXAPARIN 40 MG/0.4 ML SQ SCH (09:00)
--- NOTE | 2021-09-08 11:27 | P.PN ---
Subjective Date of Service: 09/08/21 Chief Complaint: Weakness, near syncope Patient complaining of headache today. She reports poor sleep. She states she feels better today. She was able to use the bathroom by herself. Physical Examination - Vital Signs Temperature: 97.0 F Blood Pressure: 160/79 Pulse: 62 Respirations: 12 Pulse Ox (%): 98 - Physical Exam General: Alert, In no apparent distress, Oriented x3 HEENT: Mucous membr. moist/pink Neck: Supple, JVD not distended Respiratory: Clear to auscultation bilaterally, Normal air movement Cardiovascular: No edema, Regular rate/rhythm, Normal S1 S2 Gastrointestinal: Normal bowel sounds, Soft and benign, Non-distended, No tenderness Musculoskeletal: No swelling Integumentary: No rashes Neurological: Normal strength at 5/5 x4 extr - Studies Laboratory Data (last 24 hrs) 09/08/21 04:12: Sodium 139, Potassium 3.2 L, BUN 14, Creatinine 0.60, Glucose 104 09/08/21 04:12: WBC 4.3, Hgb 13.8, Hct 40.5, Plt Count 144 L 09/07/21 16:19: Triglycerides 221 H, Cholesterol 182, HDL Cholesterol 43, Cholesterol/HDL Ratio 4.23 09/07/21 12:05: WBC 5.0, Hgb 14.6, Hct 42.3, Plt Count 165 09/07/21 12:05: Sodium 138, Potassium 3.5, BUN 9, Creatinine 0.65, Glucose 124 H, Magnesium 2.0 Assessment And Plan - Current Problems (Diagnosis) (1) Chest pain Current Visit: Yes Status: Acute (2) Near syncope Current Visit: Yes Status: Acute (3) Hypertension Current Visit: Yes Status: Acute (4) History of breast cancer Current Visit: Yes Status: Acute (5) Malignant hypertension Current Visit: Yes Status: Acute - Plan Patient is currently hypertensive Seen by cardiology. Troponin mildly elevated but trended flat. BNP is not elevated. Nuclear stress test ordered. Echocardiogram is pending No evidence of infection, no UTI or pneumonia Continue aspirin, Lipitor and metoprolol. Aggressive blood pressure control-Home antihypertensives and hydralazine as needed for BP spikes. We will add amlodipine for uncontrolled BP. orthostatic vitals. Normal cortisol and TSH levels. Supportive measures PT consult.
[2021-09-08] MEDS: AMLODIPINE 5 MG TAB PO SCH (12:36)
--- NOTE | 2021-09-08 13:52 | CON ---
Date of Consultation: 09/08/[address] Zhu on 09/07/2021. I saw the patient on 09/08/2021. Reason For Consultation: Elevated troponin. History Of Present Illness: The patient is a 56-year-old Latin-Greek woman, [place]ican-speaking only , history of breast cancer status post chemotherapy and radiation therapy, lymph node removal and samreen ast mastectomy in 2014, has a history of hypertension and diabetes. Had been feeling weak and nausea jihan for about a week with labile blood pressure, low blood pressure and high blood pressure intermitt ently according to her family. Yesterday, she came in with some chest tightness and presyncope and w as found to have a blood pressure of 173/90. Negative chest x-ray. EKG showed LVH. Troponin was 96 .9. In the week prior to that, the patient never had any chest pain. Had some diaphoresis, nausea, weakness. Denied diarrhea. Denied any fever or chills. She normally does her housework with exerti on without any chest pain. Has been diagnosed as prediabetic and has been very careful with her diet . She takes lisinopril, metformin, and metoprolol at home. Allergies: PENICILLIN. Review of Systems: Negative. Social History: Negative. Family History: Negative. Physical Examination: Vital Signs: Blood pressure 173/90, sinus rhythm, afebrile. General: No acute distress. HEENT: Negative. Neck: Supple with no bruit, lymphadenopathy, JVD, or thyromegaly. Chest: Clear to auscultation and percussion. Cardiac: Revealed regular rhythm and rate. No murmurs, gallops, or rubs. Abdomen: Benign. Extremities: Revealed no clubbing, cyanosis, or edema. Neurologic: She was nonfocal. Pulses were present distally bilaterally. Skin: Dry and intact. Diagnostic Data: As stated earlier. Impression And Plan: Elevated troponin, probably secondary to the recent hypotension. Her symptoms definitely do not sound like an acute coronary syndrome. I have no intention of doing a heart cathet erization on her based on what I have right now. I think we need to do an echocardiogram and a Elva can in the morning before making further decisions. Her diabetes is well controlled. Her blood pres sure is labile. We will need to continue her present regimen. She had a history of breast cancer th at has been cured for now. I believe her symptoms are secondary to some kind of viral syndrome. NB/MODL Voice ID: [id number] Report ID: [id number]
[2021-09-09] MEDS: METOPROLOL XL 50 MG TAB PO SCH ×2 (05:44→18:00)
[2021-09-09] MEDS ORDERED: REGADENOSON 0.4 MG/5 ML SYR IV ONE (07:15)
[2021-09-09] MEDS: lisinopriL 20 MG TAB PO SCH (09:48)
[2021-09-09] MEDS: AMLODIPINE 5 MG TAB PO SCH (09:48)
[2021-09-09] MEDS: ASPIRIN EC 81 MG TAB PO SCH (09:48)
[2021-09-09] MEDS: ENOXAPARIN 40 MG/0.4 ML SQ SCH (09:49)
--- NOTE | 2021-09-09 11:24 | RAD REPORT ---
EXAM DESCRIPTION: NM - Rest Stress Cardiac Imaging - 09/09/2021 11:09 am CLINICAL HISTORY: Chest pain COMPARISON: None. TECHNIQUE: The patient was administered 10.3 mCi of Tc 99m Sestamibi prior to resting SPECT imaging of the heart. The patient was then administered 30.4 mCi of Tc 99m Sestamibi following exercise or ph armacologic stress. Multiplanar SPECT images were reviewed. FINDINGS: The end diastolic volume is 54 ml, the end systolic volume is 19 ml, and the ejection frac tion is 65 %. Decreased attenuation is seen in the midportion of the inferior wall on stress imaging that is not pr esent on the rest sequencing. This is suspicious for stress-induced ischemia. Smaller fixed defect is seen in the mid in apex portion of the anteroseptal left ventricular wall whi ch could be breast attenuation artifact or an area of scarring. No other focus of scarring or stress ischemia identifiable. IMPRESSION: Suspected stress ischemia along the inferior wall. Small focus of scarring or attenuation artifact anteroseptal wall. Ventricular volumes and ejection fraction are well within normal limits.
--- NOTE | 2021-09-09 11:54 | EKG ---
Test Date: 2021-09-07 Test Time: 12:15:00 Head Of Academic Technology: MB MEASUREMENT RESULTS: Intervals: Rate: 66 VT: 164 QRSD: 80 QT: 428 QTc: 448 Hudson: P: 49 VT: 164 QRS: 23 T: 34 INTERPRETIVE STATEMENTS: Normal sinus rhythm Cannot rule out Anterior infarct, age undetermined Abnormal ECG No previous ECG available for comparison Electronically Signed On 09-09-21 11:50:30 CDT by Dru Godwin
--- NOTE | 2021-09-09 12:03 | TREADPHA ---
DX: ELEVATED TROPONIN Date of Study: 09/09/2021 Ht: 5' 3 " Wt: 137 lb 12.8 oz Consulting Physician: EMILEE MEDICATIONS: NORVASC, ASPIRIN, LOVENOX, PRINIVIL, TOPROL XL, MORPHINE, NITROSTAT HISTORY: 56 YEAR OLD FEMALE WITH COMPLAINTS OF CHEST PRESSURE, HEADACHE WEAKNESS. HISTORY OF BREAST CANCER (REMISSION), HYPERTENSION PHYSICIAL EXAMINATION: RESTING B.P.: 142/89 RESTING H.R.: 71 RESTING EKG: NORMAL PROTOCOL: PHARMACOLOGIC EXERCISE TIME: 3:30 B.P. AT PEAK STRESS: 163/89 IMPRESSION: LEXISCAN INJECTED. CARDIOLITE GIVEN PER PROTOCOL. SEE NUCLEAR MEDICINE REPORT. NO SUPRAVENTICULAR TACHYCARDIA, VENTRICULAR TACHYCARDIA, PREMATURE ATRIAL COMPLEXES, PREMATURE VENTRICULAR COMPLEXES. NO CHEST PAIN. COMPLIANTS OF HEADACHE.
--- NOTE | 2021-09-09 13:09 | P.PN ---
Subjective Date of Service: 09/09/21 Chief Complaint: Weakness, near syncope Patient states she feels better today. She reports poor sleep. She also states that she feels stronger. No issues overnight. Physical Examination - Vital Signs Temperature: 98.0 F Blood Pressure: 124/69 Pulse: 73 Respirations: 12 Pulse Ox (%): 98 - Physical Exam General: Alert, In no apparent distress, Oriented x3 HEENT: Mucous membr. moist/pink Neck: JVD not distended Respiratory: Clear to auscultation bilaterally, Normal air movement Cardiovascular: No edema, Regular rate/rhythm, Normal S1 S2 Gastrointestinal: Soft and benign, Non-distended, No tenderness Musculoskeletal: No swelling Integumentary: No rashes, No cyanosis Neurological: Normal strength at 5/5 x4 extr Assessment And Plan - Current Problems (Diagnosis) (1) Chest pain Current Visit: Yes Status: Acute (2) Near syncope Current Visit: Yes Status: Acute (3) Hypertension Current Visit: Yes Status: Acute (4) History of breast cancer Current Visit: Yes Status: Acute (5) Malignant hypertension Current Visit: Yes Status: Acute - Plan Patient's blood pressure has improved. Seen by cardiology. Troponin mildly elevated but trended flat. BNP is not elevated. Nuclear stress test shows possible stress-induced ischemia. Echocardiogram is pending. Cardiology to follow. No evidence of infection, no UTI or pneumonia Continue aspirin, Lipitor and metoprolol. Blood pressure readings improved. Continue current antihypertensive regimen. Normal cortisol and TSH levels. Supportive measures Seen by PT, patient noted to be functionally independent on evaluation and she does not need any further PT.
[2021-09-09 16:22] LABS: Protime INR 1.06
--- NOTE | 2021-09-09 20:10 | PN ---
Date of Progress Note: 09/09/2021 The patient came in with atypical chest pain, elevated troponin, nausea, weakness, has diabetes and h ypertension. A stress test which was done today showed stress ischemia along the inferior wall with some anterior attenuation artifact over the anteroseptal wall. Ejection fraction was 65%. Echocardi ogram is still pending. It was done, but was not read yet. Nevertheless, we will plan to do a heart catheterization on her in the morning to define her coronary anatomy. The patient understands the r isk and the benefits of the procedure and she agrees to proceed. WENDY/DENISSE Voice ID: [id number] Report ID: [id number]
[2021-09-09] MEDS: FAMOTIDINE 20 MG/2 ML VIAL IV SCH (21:43)
[2021-09-10] MEDS: METOPROLOL XL 50 MG TAB PO SCH (05:50)
[2021-09-10] MEDS: ASPIRIN EC 81 MG TAB PO SCH (05:50)
--- NOTE | 2021-09-10 06:20 | P.PN ---
Date of Service: 09/10/21
[2021-09-10 06:27] LABS: Magnesium 2.3 mg/dL (1.8-2.4); Potassium 3.6 mmol/L (3.5-5.1)
[2021-09-10] MEDS: ENOXAPARIN 40 MG/0.4 ML SQ SCH (07:20)
--- NOTE | 2021-09-10 08:39 | ECHO ---
HEIGHT: 5 ft 3 in WEIGHT: 137 lb 12.8 oz DATE OF STUDY: 09/09/[address]: kiran davis 2-DIMENSIONAL: YES M.MODE: YES DOPPLER: YES COLOR FLOW: YES TDS: PORTABLE: DEFINITY: BUBBLE STUDY: DIAGNOSIS: CHEST PAIN/ NEAR SYNCOPE CARDIAC HISTORY: CATHERIZATION: SURGERY: PROSTHETIC VALVE: PACEMAKER: MEASUREMENTS (cm) DIASTOLIC (NORMALS) SYSTOLIC (NORMALS) IVSd 0.8 (0.6-1.2) LA Diam 2.8 (1.9-4.0) LVEF 64% LVIDd 4.1 (3.5-5.7) LVIDs 2.7 (2.0-3.5) %FS 35% LVPWd 0.8 (0.6-1.2) Ao Diam 2.0 (2.0-3.7) 2 DIMENSIONAL ASSESSMENT: RIGHT ATRIUM: NORMAL LEFT ATRIUM: NORMAL RIGHT VENTRICLE: NORMAL LEFT VENTRICLE: NORMAL TRICUSPID VALVE: NORMAL MITRAL VALVE: MILD MITRAL REGURGITATION PULMONIC VALVE: NORMAL AORTIC VALVE: NORMAL PERICARDIAL EFFUSION: NONE AORTIC ROOT: NORMAL LEFT VENTRICULAR WALL MOTION: NORMAL DOPPLER/COLOR FLOW: MILD MITRAL REGURGITATION COMMENTS: NORMAL LEFT VENTRICULAR EJECTION FRACTION 60-65%. NORMAL WALLL MOTION. MILD MITRAL REGURGITATION. NORMAL DIASTOLIC FUNCTION. TECHNOLOGIST: SONIA JAMESON
[2021-09-10] MEDS: lisinopriL 20 MG TAB PO SCH (08:40)
[2021-09-10] MEDS: FAMOTIDINE 20 MG/2 ML VIAL IV SCH (08:40)
[2021-09-10] MEDS: AMLODIPINE 5 MG TAB PO SCH (08:40)
[2021-09-10] MEDS ORDERED: NA CHLORIDE 0.9% 500 ML ONE (08:53)
[2021-09-10] MEDS ORDERED: HEPA 1000U/500MLS 1,000 UNIT/500 ML BAG IV ONE (09:31)
[2021-09-10] MEDS ORDERED: FENTANYL CITR 100 MCG/2 ML ONE (09:32)
[2021-09-10] MEDS ORDERED: ATROPINE SULF 1 MG/10 ML SYR IV ONE (09:32)
[2021-09-10] MEDS ORDERED: MIDAZOLAM HCL 2 MG/2 ML INJ ONE (09:32)
[2021-09-10] MEDS ORDERED: LIDOCAINE 1% 20 ML MDV ONE (09:32)
[2021-09-10] MEDS ORDERED: NA CHLORIDE 0.9% 0 ML ONE (09:32)
--- NOTE | 2021-09-10 12:06 | OP ---
Surgeon: Dru Godwin MD Supervisor Money Room: Ms. Fang Mcduffie. The patient was admitted to Dr. Zhu on 09/08/2021 with hypotension, nausea, positive troponin, had an abnormal stress test yesterday. Procedure In Detail: Brought to the packing house laborer today as an inpatient, prepped and draped in routine st erile fashion. Underwent a left heart catheterization with selective coronary arteriogram and common femoral artery angiogram. A 6-[place] sheath had been introduced into the right common femoral arter y successfully using the Seldinger technique and 10 cc of Xylocaine. Michele catheter left and right were used to cannulate the left main and right main respectively. She was found to have normal angel nary arteries. Common femoral artery angiogram was normal. Angio-Seal was used to close the case. The patient tolerated the procedure well. There were no complications. Anesthesia: Total conscious sedation was 30 minutes. Blood Loss: 5 mL. Postoperative Diagnoses: Chest pain, positive troponin, positive stress test, normal coronaries. Plan: For medical therapy. WENDY/DENISSE Voice ID: [id number] Report ID: [id number]
[2021-09-10 13:03] VITALS: BP 108/59; TEMP 97.2
[2021-09-10] MEDS ORDERED: ACETAMINOPHEN 500 MG TAB PO PRN (13:24)
[2021-09-10 15:08] VITALS: O2SAT 97
--- NOTE | 2021-09-10 15:19 | P.DS ---
Admission Date: 09/08/21 Discharge Date: 09/10/21 Disposition: ROUTINE DISCHARGE Discharge Condition: GOOD Reason for Admission: Weakness, near syncope Consultations: Cardiology - Citlali Brief History of Present Illness: 56yo F presented to ED due to ~1 week of malaise, progressive weakness, mild chest pressure, and near syncope on day of admission. Daughter reported fluctuating blood pressure readings with intermittent episodes of hypotension. No associated palpitation or coughing or shortness of breath. Her systolic blood pressure in the ED was up to 197. Labs in the ED show mildly elevated trop onin, EKG unremarkable with no significant ischemic changes, chest x-ray showed no acute cardiopulmonary disease. No leukocytosis, and normal renal function. Hospital Course: Problem List Chest Pain Near Syncope Malaise HTN h/o breast cancer Prediabetes Patient was further evaluated by cardiac stress test which was concerning for possible stress induced ischemia. Cardiology took patient for cardiac catheterization which was normal on 09/01. Dr. Godwin felt the mild troponin increase was secondary to her transient hypotension. Patient was treated with antihypertensives and IV fluids. She had improvement of her symptoms and was feeling much better on day of discharge. The rest of her workup was negative. On discussion with the patient and family, she was recently started on metformin ~1 month ago for pre-diabetes. No lactate was done on admission, however BMP did not reveal any obvious acidosis either. There is the rare possibility patient may have developed lactic acidosis secondary to metformin vs a viral syndrome that lead to patient's symptoms. Discharged home to continue metoprolol and lisinopril. Recommended to discontinue metformin at this time. Focus on diet / lifestyle modifications Vital Signs/Physical Exam: Temp Pulse Resp BP Pulse Ox 97.2 F 70 16 108/59 L 97 09/10/21 12:00 09/10/21 12:00 09/10/21 12:00 09/10/21 12:09/10/21 12:00 General: Alert, In no apparent distress, Oriented x3 HEENT: EOMI, Sclerae nonicteric Respiratory: Clear to auscultation bilaterally, Normal air movement Cardiovascular: No edema, Regular rate/rhythm Gastrointestinal: Soft and benign, Non-distended, No tenderness Musculoskeletal: No contractures Integumentary: No rashes, No significant lesion Neurological: Normal speech, Normal strength at 5/5 x4 extr, Normal affect Laboratory Data at Discharge: WBC 4.3 K/uL (4.3-10.9) 09/08/21 04:12 Hgb 13.8 g/dL (12.0-15.0) 09/08/21 04:12 Hct 40.5 % (36.0-45.0) 09/08/21 04:12 Plt Count 144 K/uL (152-406) L 09/08/21 04:12 PT 11.7 SECONDS (9.5-12.5) 09/09/21 15:50 INR 1.06 09/09/21 15:50 APTT 36.3 SECONDS (24.3-36.9) 09/09/21 15:50 Sodium 139 mmol/L (136-145) 09/10/21 05:55 Potassium 3.6 mmol/L (3.5-5.1) 09/10/21 05:55 BUN 13 mg/dL (7-18) 09/10/21 05:55 Creatinine 0.75 mg/dL (0.55-1.3) 09/10/21 05:55 Glucose 127 mg/dL (74-106) H 09/10/21 05:55 Magnesium 2.3 mg/dL (1.8-2.4) 09/10/21 05:55 Triglycerides 221 mg/dL (<150) H 09/07/21 16:19 Cholesterol 182 mg/dL (<200) 09/07/21 16:19 HDL Cholesterol 43 mg/dL (40-60) 09/07/21 16:19 Cholesterol/HDL Ratio 4.23 09/07/21 16:19 Home Medications: Lisinopril [Zestril] 1 tab PO DAILY 09/07/21 Metoprolol Succinate [Toprol Xl*] 1 tab PO DAILY 09/07/21 Diet: ADA Followup: IVIS HEBERT [Primary Care Provider] - Time spent managing pt's care (in minutes): 40
== END 2021-09-10 15:52 | disposition home or self-care (01) | DRG 287 ==
LOC: ER 11:44 → ERHOLD 13:48 → 2ND 15:28 → OBSVTOIN 09-08 08:22
PROVIDERS: ADMIT Internal Medicine; ATTEND Internal Medicine
PROC: B2011ZZ Plain Radiography of Multiple Coronary Arteries using Low Osmolar Contrast (ICD-10-PCS; principal; 2021-09-10)
DX: R07.9 Chest pain, unspecified (principal); I95.9 Hypotension, unspecified; R94.39 Abnormal result of other cardiovascular function study; R77.8 Other specified abnormalities of plasma proteins; R55 Syncope and collapse; I10 Essential (primary) hypertension; I99.8 Other disorder of circulatory system; E11.9 Type 2 diabetes mellitus without complications; Z88.0 Allergy status to penicillin; Z85.3 Personal history of malignant neoplasm of breast; Z20.822 Contact with and (suspected) exposure to COVID-19
CPT/HCPCS: 36415; 71045; 78452; 80048; 80061; 81003; 82533; 83036; 83735; 83880; 84443; 84484; 85025; 85610; 85730; 93005; 93017; 93306; 93454; 97161; 99285; A9500; C1760; C1893; G0269; G0378; J0583; J1644; J1650; J2250; J2785; J3010; J3490; J7040; Q9966; U0003

== ENCOUNTER 2022-02-25 22:27 | Emergency (ER) | payer SELFPAY ==
--- OUTSIDE RECORDS SUMMARY | 2022-02-25 22:32 | XMS REPORT | Continuity of Care Document ---
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 MENT AT [email or web address] RISK RATIO LDL/HDL 2.60 RATIO <3.22 (test code = 2238) HEMOGLOBIN [id number] 06:35:03 Test Item Value Reference Range Interpretation Comments HEMOGLOBIN A1c (test 8.9 % 4.2-5.6 H [employer] AN DIABETES code = 64017) ASSOCIATION IDELINES FOR HGB A1C: PREDIABETES/INC REASED RISK . . . . . . . 5.7 -6.4% DIAGNOSIS OF DI ABETES . . . . . . . . . >=6 .5% WITH CONFIRMATION OR APPROPRIATE SYMPTOMS NOTE: ASSAY MAY BE AFFECTED BY HEMOGLOBINOPATH IES (SICKLE CELL ANEMIA, S- C DISEASE, OTHERS) OR CORINE FICIALLY LOWERED BY DECR EASED RED CELL SURVIVAL ( HEMOLYTIC ANEMIAS, BLOOD LOSS, ETC.). CONSIDER ALTERN ATE TESTING OR LABORATORY C ONSULTATION. UNLESS OTHERWIS E INDICATED, ALL TESTING PER FORMED ATCLINICAL PATH [facility]LOGY LAB[facility]ATORIES, I CO. [address] [id number] LABORATORY DIRE CTOR: MERCEDES TRONCOSO M.D. CLIA NUMBER [id number] [place]. [id number] COMPREHENSIVE METABOLIC [id number] 00:00:00 Test Item Value Reference Range Interpretation Comments GLUCOSE (test code = 2217) 178 MG/DL BUN (test code = 2208) 8 MG/DL CREATININE (test code = 2214) 0.59 MG/DL eGFR (2020 CKD-EPI) (test 105 ML/MIN/1.73 code = 91527) CALC BUN/CREAT (test code = 14 RATIO 2235) SODIUM (test code = 2231) 143 MEQ/L POTASSIUM (test code = 2228) 4.8 MEQ/L CHLORIDE (test code = 2215) 103 MEQ/L CARBON DIOXIDE (test code = 26 MEQ/L 2205) CALCIUM (test code = 2209) 9.8 MG/DL PROTEIN, TOTAL (test code = 7.6 G/DL 2228) ALBUMIN (test code = 2201) 4.6 G/DL CALC GLOBULIN (test code = 3.0 G/DL 2239) CALC A/G RATIO (test code = 1.5 RATIO 4) BILIRUBIN, TOTAL (test code = 0.5 MG/DL 2206) ALKALINE PHOSPHATASE (test 128 U/L code = 2204) AST (test code = 2218) 34 U/L ALT (test code = 2219) 59 U/L LIPID [id number] 00:00:00 Test Item Value Reference Range Interpretation Comments CHOLESTEROL (test code = 2210) 201 MG/DL TRIGLYCERIDES (test code = 2232) 201 MG/DL HDL CHOLESTEROL (test code = 2220) 47 MG/DL CALC LDL CHOL (test code = 2237) 122 MG/DL RISK RATIO LDL/HDL (test code = 2.60 RATIO 2238) HEMOGLOBIN [id number] 00:00:00 Test Item Value Reference Range Interpretation Comments HEMOGLOBIN A1c (test code = 27188) 8.9 % HEMOGLOBIN [id number] 00:00:00 Test Item Value Reference Range Interpretation Comments HEMOGLOBIN A1c (test code = 32927) 8.9 % CHEM [id number] 18:32:00 Test Item Value Reference Range Interpretation Comments eGFR (test code = eGFR) 106 [facility] [id number] 18:32:00 Test Item Value Reference Range Interpretation Comments Glucose Lvl (test code = Glucose Lvl) 90 70-99 [facility]2015-06-12 18:32:00 Test Item Value Reference Range Interpretation Comments BUN (test code = BUN) 11 10-11 [facility]2015-06-12 18:32:00 Test Item Value Reference Range Interpretation Comments Chloride Lvl (test code = Chloride Lvl) 106 95-109 [facility]2015-06-12 18:32:00 Test Item Value Reference Range Interpretation Comments CO2 (test code = CO2) [facility]2015-06-12 18:32:00 Test Item Value Reference Range Interpretation Comments Sodium Lvl (test code = Sodium Lvl) 141 135-145 [facility]2015-06-12 18:32:00 Test Item Value Reference Range Interpretation Comments Potassium Lvl (test code = Potassium 3.7 3.5-5.1 Lvl) [facility]2015-06-12 18:32:00 Test Item Value Reference Range Interpretation Comments Creatinine Lvl (test code = Creatinine 0.6 0.5-1.4 Lvl) [facility]2015-06-12 18:32:00 Test Item Value Reference Range Interpretation Comments Calcium Lvl (test code = Calcium Lvl) 8.6 8.5-10.5 [facility]2015-06-12 18:32:00 Test Item Value Reference Range Interpretation Comments eGFR (test code = eGFR) 106 [facility]2015-06-12 18:32:00 Test Item Value Reference Range Interpretation Comments Glucose Lvl (test code = Glucose Lvl) 90 - [facility]2015-06-12 18:32:00 Test Item Value Reference Range Interpretation Comments BUN (test code = BUN) 11 10-11 [facility]2015-06-12 18:32:00 Test Item Value Reference Range Interpretation Comments AGAP (test code = AGAP) 7.7 10.0-20.0 [facility]2015-06-12 18:32:00 Test Item Value Reference Range Interpretation Comments Chloride Lvl (test code = Chloride Lvl) 106 95-109 [facility]2015-06-12 18:32:00 Test Item Value Reference Range Interpretation Comments CO2 (test code = CO2) 31 -32 [facility]2015-06-12 18:32:00 Test Item Value Reference Range Interpretation Comments Sodium Lvl (test code = Sodium Lvl) 141 135-145 [facility]2015-06-12 18:32:00 Test Item Value Reference Range Interpretation Comments Potassium Lvl (test code = Potassium 3.7 3.5-5.1 Lvl) [facility]2015-06-12 18:32:00 Test Item Value Reference Range Interpretation Comments Creatinine Lvl (test code = Creatinine 0.6 0.5-1.4 Lvl) [facility]2015-06-12 18:32:00 Test Item Value Reference Range Interpretation Comments Calcium Lvl (test code = Calcium Lvl) 8.6 8.5-10.5 [facility]2015-06-12 18:32:00 Test Item Value Reference Range Interpretation Comments AGAP (test code = AGAP) 7.7 10.0-20.0 [place] [id number] 18:32:00 Test Item Value Reference Range Interpretation Comments S Preg (test code = S Negative *NA*(09/01/14 Preg) 1:32 PM) [id number] 18:32:00 Test Item Value Reference Range Interpretation Comments RBC (test code = RBC) 3.61 4.20-5.40 [facility] [id number] 18:32:00 Test Item Value Reference Range Interpretation Comments Hgb (test code = Hgb) 11.4 12.0-16.0 [place] [id number] 18:32:00 Test Item Value Reference Range Interpretation Comments S Preg (test code = S Negative *NA*(09/01/14 Preg) 1:32 PM) [facility] SouthSuxvjyxAUXZPRMNNQ1333-91-05 18:32:00 Test Item Value Reference Range Interpretation Comments Hct (test code = Hct) 33.8 36.0-48.0 [facility] SouthNoqtktbUQHEWWEZZB5955-75-98 18:32:00 Test Item Value Reference Range Interpretation Comments MPV (test code = MPV) 8.5 7.4-10.4 [facility] [id number] 18:32:00 Test Item Value Reference Range Interpretation Comments MCV (test code = MCV) 93.7 80.0-98.0 [facility] SouthKrklwgjKHCOVATMCN8585-87-34 18:32:00 Test Item Value Reference Range Interpretation Comments WBC (test code = WBC) 2.6 3.7-10.4 [facility] SouthZ[id number] 18:32:00 Test Item Value Reference Range Interpretation Comments MCH (test code = MCH) 31.5 pg 27.0-31.0 [facility] SouthBrsaaymEDUALWDHUS1589-39-69 18:32:00 Test Item Value Reference Range Interpretation Comments MCHC (test code = MCHC) 33.6 32.0-36.0 [facility] SouthRyenlwxOVOCKTAEPW2984-49-62 18:32:00 Test Item Value Reference Range Interpretation Comments RDW (test code = RDW) 14.0 11.5-14.5 [facility] SouthLnfmukrGRKAUKOPRG3667-73-32 18:32:00 Test Item Value Reference Range Interpretation Comments Platelet (test code = Platelet) 156 133-450 [facility] SouthKzqxmdrCCNYMYPJCL2554-32-67 18:32:00 Test Item Value Reference Range Interpretation Comments Eosinophils # (test code 0.1 See_Comment [A utomated message] The = Eosinophils #) system whic h generated this result tra nsmitted reference range : <=0.5. The reference r davis was not used to int erpret this result as normal/abnormal . [facility] SouthLgyhnktEZYTKPXXJB4582-98-70 18:32:00 Test Item Value Reference Range Interpretation Comments Basophils # (test code 0.0 See_Comment [Aut omated message] The = Basophils #) system which generated this result tra nsmitted reference range : <=0.2. The reference r davis was not used to int erpret this result as normal/abnormal . [facility] SouthAbftpurZKIZWRDQJR4550-03-84 18:32:00 Test Item Value Reference Range Interpretation Comments RBC (test code = RBC) 3.61 4.20-5.40 [facility] SouthEuktlvvKMIKMQFZIE8975-02-37 18:32:00 Test Item Value Reference Range Interpretation Comments Monocytes # (test code 0.3 See_Comment [Aut omated message] The = Monocytes #) system which generated this result tra nsmitted reference range : <=0.8. The reference r davis was not used to int erpret this result as normal/abnormal . [facility] SouthBervdrcAVGSCUMWYR3272-21-36 18:32:00 Test Item Value Reference Range Interpretation Comments Lymphocytes # (test code = Lymphocytes 0.8 1.0-5.5 #) [facility] SouthQxvucwuUVFZTOBEHJ7587-95-74 18:32:00 Test Item Value Reference Range Interpretation Comments Segs (test code = Segs) 57.2 45.0-75.0 [facility] SouthEjmuscbLPYOHQTRFW7584-31-25 18:32:00 Test Item Value Reference Range Interpretation Comments Monocytes (test code = Monocytes) 10.0 2.0-12.0 [facility] SouthVaazoecRAUIAZLHCU3378-69-87 18:32:00 Test Item Value Reference Range Interpretation Comments Lymphocytes (test code = Lymphocytes) 29.4 20.0-40.0 [facility] SouthFyxsuueXSNCITBOLH0747-12-29 18:32:00 Test Item Value Reference Range Interpretation Comments Eosinophils (test code = 2.8 See_Comment [A utomated message] The Eosinophils) system which ge nerated this result tra nsmitted reference range : <=4.0. The reference r davis was not used to int erpret this result as normal/abnormal . [facility] SouthSrufuonFXVOVOSDXZ7545-85-62 18:32:00 Test Item Value Reference Range Interpretation Comments Segs-Bands # (test code = Segs-Bands #) 1.5 1.5-8.1 [facility] SouthGwtjiehOCTOBIECAY4005-61-24 18:32:00 Test Item Value Reference Range Interpretation Comments Basophils (test code = 0.6 See_Comment [Aut omated message] The Basophils) system which ge nerated this result tra nsmitted reference range : <=1.0. The reference r davis was not used to int erpret this result as normal/abnormal . [facility] [id number] 18:32:00 Test Item Value Reference Range Interpretation Comments CA 27 29 (test code = 42 See_Comment [Auto mated message] The CA 27 29) system which ge nerated this result transmit jihan reference range : <=40. The reference range was not used to interpr et this result as fernando l/abnormal. [facility] [id number] 18:32:00 Test Item Value Reference Range Interpretation Comments CEA (test code = CEA) 1.0 See_Comment [Auto mated message] The system which ge nerated this result transmit jihan reference range : <=3.0. The reference range was not used to interpr et this result as fernando l/abnormal. [facility] SouthRcmkkzkYKYAAYZPWC2727-58-12 18:32:00 Test Item Value Reference Range Interpretation Comments Hgb (test code = Hgb) 11.4 12.0-16.0 [facility] SouthSxdfwqhHIUQTJJGBX1849-55-33 18:32:00 Test Item Value Reference Range Interpretation Comments Hct (test code = Hct) 33.8 36.0-48.0 [facility] SouthTznzqscKRIMYXHMDE2717-41-87 18:32:00 Test Item Value Reference Range Interpretation Comments MPV (test code = MPV) 8.5 7.4-10.4 [facility] SouthPsybymdYNRPJRZOSH4409-41-56 18:32:00 Test Item Value Reference Range Interpretation Comments MCV (test code = MCV) 93.7 80.0-98.0 [facility] SouthNotwvphANZZMZYNKK3585-56-10 18:32:00 Test Item Value Reference Range Interpretation Comments WBC (test code = WBC) 2.6 3.7-10.4 [facility] SouthMzupznhVKXUSZEAIC9660-38-24 18:32:00 Test Item Value Reference Range Interpretation Comments MCH (test code = MCH) 31.5 pg 27.0-31.0 [facility] SouthUbpbunhQCJKKBSIGG2510-35-54 18:32:00 Test Item Value Reference Range Interpretation Comments MCHC (test code = MCHC) 33.6 32.0-36.0 [facility] SouthFuhiakqBYWITDKHJQ4967-30-68 18:32:00 Test Item Value Reference Range Interpretation Comments RDW (test code = RDW) 14.0 11.5-14.5 [facility] SouthGzfaopmPXPDAYCAQD9264-58-12 18:32:00 Test Item Value Reference Range Interpretation Comments Platelet (test code = Platelet) 156 133-450 [facility] SouthJkmxtgeYXMBWKABJM8875-54-29 18:32:00 Test Item Value Reference Range Interpretation Comments Eosinophils # (test code 0.1 See_Comment [A utomated message] The = Eosinophils #) system whic h generated this result tra nsmitted reference range : <=0.5. The reference r davis was not used to int erpret this result as normal/abnormal . [facility] SouthQkvddfhCAFEWPFKKG8949-83-83 18:32:00 Test Item Value Reference Range Interpretation Comments Basophils # (test code 0.0 See_Comment [Aut omated message] The = Basophils #) system which generated this result tra nsmitted reference range : <=0.2. The reference r davis was not used to int erpret this result as normal/abnormal . [facility] SouthSrnhpvaQSSZQRQHXQ3914-47-64 18:32:00 Test Item Value Reference Range Interpretation Comments Monocytes # (test code 0.3 See_Comment [Aut omated message] The = Monocytes #) system which generated this result tra nsmitted reference range : <=0.8. The reference r davis was not used to int erpret this result as normal/abnormal . [facility] SouthKukltkdKOYTBTTZHP7936-88-81 18:32:00 Test Item Value Reference Range Interpretation Comments Lymphocytes # (test code = Lymphocytes 0.8 1.0-5.5 #) [facility] SouthMjwqnryBLZZLUFDXR9401-98-47 18:32:00 Test Item Value Reference Range Interpretation Comments Segs (test code = Segs) 57.2 45.0-75.0 [facility] SouthSoofuplWMKPMDSOFV7502-22-73 18:32:00 Test Item Value Reference Range Interpretation Comments Monocytes (test code = Monocytes) 10.0 2.0-12.0 [facility] SouthKwnjxhrWLOYFTBTKK4797-45-68 18:32:00 Test Item Value Reference Range Interpretation Comments Lymphocytes (test code = Lymphocytes) 29.4 20.0-40.0 [facility] SouthXekqmgmXIQXMMKNYA3067-33-56 18:32:00 Test Item Value Reference Range Interpretation Comments Eosinophils (test code = 2.8 See_Comment [A utomated message] The Eosinophils) system which ge nerated this result tra nsmitted reference range : <=4.0. The reference r davis was not used to int erpret this result as normal/abnormal . [facility] SouthYotrxtaMFDFIRZBYX5759-11-20 18:32:00 Test Item Value Reference Range Interpretation Comments Segs-Bands # (test code = Segs-Bands #) 1.5 1.5-8.1 [facility] SouthDpzjraxWRSFJNNVNP3496-68-12 18:32:00 Test Item Value Reference Range Interpretation Comments Basophils (test code = 0.6 See_Comment [Aut omated message] The Basophils) system which ge nerated this result tra nsmitted reference range : <=1.0. The reference r davis was not used to int erpret this result as normal/abnormal . [facility] GLHMKRX6516-19-69 18:32:00 Test Item Value Reference Range Interpretation Comments CA 27 29 (test code = 42 See_Comment [Auto mated message] The CA 27 29) system which ge nerated this result transmit jihan reference range : <=40. The reference range was not used to interpr et this result as fernando l/abnormal. [facility] [id number] 18:32:00 Test Item Value Reference Range Interpretation Comments CEA (test code = CEA) 1.0 See_Comment [Auto mated message] The system which ge nerated this result transmit jihan reference range : <=3.0. The reference range was not used to interpr et this result as fernando l/abnormal. [facility] HospitalLmianrpLBAIFCLROOJZ4979-18-95 10:45:00 Test Item Value Reference Range Interpretation Comments Sodium Lvl (test code = Sodium Lvl) 140 135-145 [facility] HospitalZrtopotNAARRHSSSNZI6450-88-25 10:45:00 Test Item Value Reference Range Interpretation Comments Chloride Lvl (test code = Chloride Lvl) 112 95-109 [facility] SouthQooiqvkMLRQXJESSJ2534-59-88 10:45:00 Test Item Value Reference Range Interpretation Comments MCHC (test code = MCHC) 35.8 32.0-36.0 [facility] SouthUlrqmigYBOLOIRMBI3464-08-67 10:45:00 Test Item Value Reference Range Interpretation Comments MCH (test code = MCH) 32.3 pg 27.0-31.0 [facility] SouthOovlnrwJYZQJMOGAM0951-30-92 10:45:00 Test Item Value Reference Range Interpretation Comments MPV (test code = MPV) 9.5 7.4-10.4 [facility] SouthSzcrbqmUKWBKHFZDB4475-13-75 10:45:00 Test Item Value Reference Range Interpretation Comments Platelet (test code = Platelet) 96 133-450 [facility] SouthVzslwelOHGWGVEQQN2562-23-56 10:45:00 Test Item Value Reference Range Interpretation Comments RDW (test code = RDW) 13.1 11.5-14.5 [facility] SouthNrnuxrdYKUBSDRFKB5144-76-08 10:45:00 Test Item Value Reference Range Interpretation Comments WBC (test code = WBC) 4.6 3.7-10.4 [facility] SouthCuhpxamCEXUABBMPH6931-40-96 10:45:00 Test Item Value Reference Range Interpretation Comments Hct (test code = Hct) 30.2 36.0-48.0 [facility] SouthQbysliiCQDFAYFKQT6344-74-34 10:45:00 Test Item Value Reference Range Interpretation Comments Hgb (test code = Hgb) 10.8 12.0-16.0 [facility] SouthCymyygzIULDTLVUDW9466-77-15 10:45:00 Test Item Value Reference Range Interpretation Comments RBC (test code = RBC) 3.35 4.20-5.40 [facility] SouthEuhqkmfDCFKABUEKL2021-77-04 10:45:00 Test Item Value Reference Range Interpretation Comments MCV (test code = MCV) 90.3 80.0-98.0 [facility] SouthCwrpcqhKUPARENSIM6490-19-32 10:45:00 Test Item Value Reference Range Interpretation Comments Dohle Bodies (test Moderate *ABN*(04/12/14 code = Dohle Bodies) 4:45 AM) [facility] SouthHssnkzmTIRNCUFEGE4031-01-99 10:45:00 Test Item Value Reference Range Interpretation Comments Plt Morph (test code = Normal (04/12/14 4:45 Plt Morph) AM) [facility] SouthByyoogpOXCDEQGFNC6818-04-03 10:45:00 Test Item Value Reference Range Interpretation Comments Toxic Gran (test code Moderate *ABN*(04/12/14 = Toxic Gran) 4:45 AM) [facility] SouthKqfxyfuBRKNOKZITV2230-36-00 10:45:00 Test Item Value Reference Range Interpretation Comments Metamyelocytes (test code 1.0 See_Comment [ Automated message] = Metamyelocytes) The system which generated this result transmitted ref erence range: <=1.0. T he reference range was not used to int erpret this result as normal/abnormal . [facility] SouthXvjonjjZCGWXVNCWW4871-67-88 10:45:00 Test Item Value Reference Range Interpretation Comments RBC Morph (test code = Normal (04/12/14 4:45 RBC Morph) AM) [facility] SouthJazmebhKERFOANBAZ3500-09-37 10:45:00 Test Item Value Reference Range Interpretation Comments Atypical Lymphs (test code = Atypical 2.0 Lymphs) [facility] SouthCdoiqkzYGDHKQYKQN0647-88-92 10:45:00 Test Item Value Reference Range Interpretation Comments Myelocytes (test code = Myelocytes) 1.0 [facility] SouthHghogtpCRAPOHTHON9391-25-01 10:45:00 Test Item Value Reference Range Interpretation Comments Bands (test code = 8.0 See_Comment [Automat ed message] The Bands) system which ge nerated this result transmit jihan reference range : <=11.0. The reference r davis was not used to interpr et this result as fernando l/abnormal. [facility] SouthNduqfxfJBAXMXGFXX3216-32-49 10:45:00 Test Item Value Reference Range Interpretation Comments Segs (test code = Segs) 39.0 45.0-75.0 [facility] SouthEnrujlsSWOBCSEVCA4258-90-91 10:45:00 Test Item Value Reference Range Interpretation Comments Eosinophils (test code = 2.0 See_Comment [A utomated message] The Eosinophils) system which ge nerated this result tra nsmitted reference range : <=4.0. The reference r davis was not used to int erpret this result as normal/abnormal . [facility] SouthZwkztopLRRAISIFLT9311-54-30 10:45:00 Test Item Value Reference Range Interpretation Comments Monocytes (test code = Monocytes) 7.0 2.0-12.0 [facility] SouthQohtjlzBTYFRTAUHD1945-53-70 10:45:00 Test Item Value Reference Range Interpretation Comments Lymphocytes (test code = Lymphocytes) 40.0 20.0-40.0 [facility] SouthJzibqlgDVTTVJVWHA9901-84-24 10:45:00 Test Item Value Reference Range Interpretation Comments Segs-Bands # (test code = Segs-Bands #) 2.2 1.5-8.1 [facility] SouthQtlqjwfLDHSWQXJQG1103-68-95 10:45:00 Test Item Value Reference Range Interpretation Comments Eosinophils # (test code 0.1 See_Comment [A utomated message] The = Eosinophils #) system whic h generated this result tra nsmitted reference range : <=0.5. The reference r davis was not used to int erpret this result as normal/abnormal . [facility] SouthUstonixTRYIRUZBFN6960-84-36 10:45:00 Test Item Value Reference Range Interpretation Comments Monocytes # (test code 0.3 See_Comment [Aut omated message] The = Monocytes #) system which generated this result tra nsmitted reference range : <=0.8. The reference r davis was not used to int erpret this result as normal/abnormal . [facility] SouthIppnlcsELBJEPXNYU7415-53-62 10:45:00 Test Item Value Reference Range Interpretation Comments Lymphocytes # (test code = Lymphocytes 1.9 1.0-5.5 #) [facility] HospitalYxropywKKEWNESKQYJV0960-82-63 10:45:00 Test Item Value Reference Range Interpretation Comments AGAP (test code = AGAP) 12.3 10.0-20.0 [facility] HospitalOwqcpagJOFYNJPBOLFC0437-90-53 10:45:00 Test Item Value Reference Range Interpretation Comments eGFR (test code = eGFR) 113 [facility] HospitalCozlxmdNIEOTGJSLLEZ1317-06-45 10:45:00 Test Item Value Reference Range Interpretation Comments Glucose Lvl (test code = Glucose Lvl) 95 70-99 [facility] HospitalSdqnsyqTZYLTMPMFHMD8886-27-83 10:45:00 Test Item Value Reference Range Interpretation Comments Creatinine Lvl (test code = Creatinine 0.5 0.5-1.4 Lvl) [facility] HospitalHqhipegDJDCKJDXKUIK1595-99-64 10:45:00 Test Item Value Reference Range Interpretation Comments BUN (test code = BUN) 10 7-22 [facility] HospitalRthowxlZJLJCRHOXXGE0629-62-40 10:45:00 Test Item Value Reference Range Interpretation Comments Calcium Lvl (test code = Calcium Lvl) 8.5 8.5-10.5 [facility] HospitalSwfdctmAELQBBDBXKJZ0540-32-14 10:45:00 Test Item Value Reference Range Interpretation Comments CO2 (test code = CO2) 20 24-32 [facility] HospitalDyalkhqUNZHYSMGXHJD0557-35-35 10:45:00 Test Item Value Reference Range Interpretation Comments Potassium Lvl (test code = Potassium 4.3 3.5-5.1 Lvl) [facility] SouthGtnassoTHUURGNWAN2756-22-25 10:45:00 Test Item Value Reference Range Interpretation Comments MCHC (test code = MCHC) 35.8 32.0-36.0 [facility] SouthDwbmvspZRQXFDCUEA8885-50-82 10:45:00 Test Item Value Reference Range Interpretation Comments MCH (test code = MCH) 32.3 pg 27.0-31.0 [facility] SouthFhrfjhjEQZBOWQKNR0462-42-15 10:45:00 Test Item Value Reference Range Interpretation Comments MPV (test code = MPV) 9.5 7.4-10.4 [facility] [facility]BlikwivWHYRFAUANU2973-17-03 10:45:00 Test Item Value Reference Range Interpretation Comments Platelet (test code = Platelet) 96 133-450 [facility]EwrkxzxQYRBTUKETX1118-75-00 10:45:00 Test Item Value Reference Range Interpretation Comments RDW (test code = RDW) 13.1 11.5-14.5 [facility] SouthVdgzntkDTEHMLMMGO6697-30-24 10:45:00 Test Item Value Reference Range Interpretation Comments WBC (test code = WBC) 4.6 3.7-10.4 [facility] SouthMakpqpvBEYCTJJHPH4136-21-56 10:45:00 Test Item Value Reference Range Interpretation Comments Hct (test code = Hct) 30.2 36.0-48.0 [facility] SouthTfszxwdZRARZAOVNQ0909-56-43 10:45:00 Test Item Value Reference Range Interpretation Comments Hgb (test code = Hgb) 10.8 12.0-16.0 [facility] SouthCwxhnuqPSRLLXFGAQ5961-82-92 10:45:00 Test Item Value Reference Range Interpretation Comments RBC (test code = RBC) 3.35 4.20-5.40 [facility] SouthYghrlbuCMSUHVCJPJ9688-27-99 10:45:00 Test Item Value Reference Range Interpretation Comments MCV (test code = MCV) 90.3 80.0-98.0 [facility] SouthPkipuuaDLGSTVRXZW2437-03-73 10:45:00 Test Item Value Reference Range Interpretation Comments Dohle Bodies (test Moderate *ABN*(04/12/14 code = Dohle Bodies) 4:45 AM) [facility] SouthOgpzrraMKOXEFUHVN8579-00-77 10:45:00 Test Item Value Reference Range Interpretation Comments Plt Morph (test code = Normal (04/12/14 4:45 Plt Morph) AM) [facility] SouthNlzhshlNLGXSPLSQP6729-74-21 10:45:00 Test Item Value Reference Range Interpretation Comments Toxic Gran (test code Moderate *ABN*(04/12/14 = Toxic Gran) 4:45 AM) [facility] SouthMxwdqqfNDVUGOLHLM6616-10-43 10:45:00 Test Item Value Reference Range Interpretation Comments Metamyelocytes (test code 1.0 See_Comment [ Automated message] = Metamyelocytes) The system which generated this result transmitted ref erence range: <=1.0. T he reference range was not used to int erpret this result as normal/abnormal . [facility] SouthAhhnjasHIZUHTRJDO8220-99-18 10:45:00 Test Item Value Reference Range Interpretation Comments RBC Morph (test code = Normal (04/12/14 4:45 RBC Morph) AM) [facility] SouthSvfiwknWYIXDBWTEH3259-45-70 10:45:00 Test Item Value Reference Range Interpretation Comments Atypical Lymphs (test code = Atypical 2.0 Lymphs) [facility] SouthXvxrzmgKUWBQQLLIR5882-79-72 10:45:00 Test Item Value Reference Range Interpretation Comments Myelocytes (test code = Myelocytes) 1.0 [facility] SouthJnofnldRBLBILSYWX1002-35-42 10:45:00 Test Item Value Reference Range Interpretation Comments Bands (test code = 8.0 See_Comment [Automat ed message] The Bands) system which ge nerated this result transmit jihan reference range : <=11.0. The reference r davis was not used to interpr et this result as fernando l/abnormal. [facility] SouthQtjmrrlMDELNZYHJM8858-77-58 10:45:00 Test Item Value Reference Range Interpretation Comments Segs (test code = Segs) 39.0 45.0-75.0 [facility] SouthWmmsmuaCPYSOMFQFS9198-39-01 10:45:00 Test Item Value Reference Range Interpretation Comments Eosinophils (test code = 2.0 See_Comment [A utomated message] The Eosinophils) system which ge nerated this result tra nsmitted reference range : <=4.0. The reference r davis was not used to int erpret this result as normal/abnormal . [facility] SouthAeobmekJHJCWETUET1289-81-62 10:45:00 Test Item Value Reference Range Interpretation Comments Monocytes (test code = Monocytes) 7.0 2.0-12.0 [facility] SouthEyurmgtHINESIXNEF1681-43-22 10:45:00 Test Item Value Reference Range Interpretation Comments Lymphocytes (test code = Lymphocytes) 40.0 20.0-40.0 [facility] SouthUgqveyyWRRXFIRIAM4979-67-91 10:45:00 Test Item Value Reference Range Interpretation Comments Segs-Bands # (test code = Segs-Bands #) 2.2 1.5-8.1 [facility] SouthHwfiljlYMTICXARJL1387-38-28 10:45:00 Test Item Value Reference Range Interpretation Comments Eosinophils # (test code 0.1 See_Comment [A utomated message] The = Eosinophils #) system whic h generated this result tra nsmitted reference range : <=0.5. The reference r davis was not used to int erpret this result as normal/abnormal . [facility] SouthHprfkgkHFLPOTPLIH6587-16-86 10:45:00 Test Item Value Reference Range Interpretation Comments Monocytes # (test code 0.3 See_Comment [Aut omated message] The = Monocytes #) system which generated this result tra nsmitted reference range : <=0.8. The reference r davis was not used to int erpret this result as normal/abnormal . [facility] SouthPqlkbogNPGEFVMEOM4638-28-09 10:45:00 Test Item Value Reference Range Interpretation Comments Lymphocytes # (test code = Lymphocytes 1.9 1.0-5.5 #) [facility]yl[facility]obnSZDIVPJLJQBU2597-50-57 10:45:00 Test Item Value Reference Range Interpretation Comments AGAP (test code = AGAP) 12.3 10.0-20.0 [facility] HospitalXtswjnsKGQMJBURAKDO7982-49-65 10:45:00 Test Item Value Reference Range Interpretation Comments eGFR (test code = eGFR) 113 [facility]XgchmgwMJXJPPGLPNNV8218-12-66 10:45:00 Test Item Value Reference Range Interpretation Comments Glucose Lvl (test code = Glucose Lvl) 95 70-99 [facility] HospitalSiwzeqmGORYQQEXCSZQ5192-49-61 10:45:00 Test Item Value Reference Range Interpretation Comments Creatinine Lvl (test code = Creatinine 0.5 0.5-1.4 Lvl) [facility] HospitalAgscdfyLLLBVXGOMDFT9507-26-05 10:45:00 Test Item Value Reference Range Interpretation Comments BUN (test code = BUN) 10 7-22 [facility] HospitalSndkkuiEISWGXVUONXN2261-03-61 10:45:00 Test Item Value Reference Range Interpretation Comments Calcium Lvl (test code = Calcium Lvl) 8.5 8.5-10.5 [facility] HospitalNulmemtVNJSTEKKCTQO2185-43-06 10:45:00 Test Item Value Reference Range Interpretation Comments CO2 (test code = CO2) 20 24-32 [facility] HospitalOlwkbcnTUJCPSJXRAGO7069-10-14 10:45:00 Test Item Value Reference Range Interpretation Comments Potassium Lvl (test code = Potassium 4.3 3.5-5.1 Lvl) [facility] HospitalTlqilzrBGYODQFEPXPW9572-34-87 10:45:00 Test Item Value Reference Range Interpretation Comments Sodium Lvl (test code = Sodium Lvl) 140 135-145 [facility] HospitalVpirbplKOGKUBIXIGXJ0518-84-35 10:45:00 Test Item Value Reference Range Interpretation Comments Chloride Lvl (test code = Chloride Lvl) 112 95-109 [facility]2015-01-20 14:47:00 Test Item Value Reference Range Interpretation Comments AST (test code = AST) 20 See_Comment [Auto mated message] The system which ge nerated this result transmit jihan reference range : <=37. The reference range was not used to interpr et this result as fernando l/abnormal. [facility]2015-01-20 14:47:00 Test Item Value Reference Range Interpretation Comments CO2 (test code = CO2) 28 24-32 [facility]2015-01-20 14:47:00 Test Item Value Reference Range Interpretation Comments Calcium Lvl (test code = Calcium Lvl) 9.1 8.5-10.5 [facility]2015-01-20 14:47:00 Test Item Value Reference Range Interpretation Comments Total Protein (test code = Total 6.2 6.4-8.4 Protein) [facility]2015-01-20 14:47:00 Test Item Value Reference Range Interpretation Comments Albumin Lvl (test code = Albumin Lvl) 2.9 3.5-5.0 [facility]2015-01-20 14:47:00 Test Item Value Reference Range Interpretation Comments Glucose Lvl (test code = Glucose Lvl) 101 70-99 [facility]2015-01-20 14:47:00 Test Item Value Reference Range Interpretation Comments BUN (test code = BUN) 6 7-22 [facility]2015-01-20 14:47:00 Test Item Value Reference Range Interpretation Comments Creatinine Lvl (test code = Creatinine 0.6 0.5-1.4 Lvl) [facility]2015-01-20 14:47:00 Test Item Value Reference Range Interpretation Comments Sodium Lvl (test code = Sodium Lvl) 138 135-145 [facility]2015-01-20 14:47:00 Test Item Value Reference Range Interpretation Comments Potassium Lvl (test code = Potassium 4.3 3.5-5.1 Lvl) [facility]2015-01-20 14:47:00 Test Item Value Reference Range Interpretation Comments AGAP (test code = AGAP) 7.3 10.0-20.0 [facility]2015-01-20 14:47:00 Test Item Value Reference Range Interpretation Comments A/G Ratio (test code = A/G Ratio) 0.9 0.7-1.6 [facility]2015-01-20 14:47:00 Test Item Value Reference Range Interpretation Comments B/C Ratio (test code = B/C Ratio) 10 6-25 [facility]2015-01-20 14:47:00 Test Item Value Reference Range Interpretation Comments Globulin (test code = Globulin) 3.3 2.0-4.0 [facility] SouthGmskxphCLGYOOJMLZ1913-28-72 14:47:00 Test Item Value Reference Range Interpretation Comments MCH (test code = MCH) 31.1 pg 27.0-31.0 [facility] SouthThooetmPECIEYXLSI6950-12-30 14:47:00 Test Item Value Reference Range Interpretation Comments WBC (test code = WBC) 2.4 3.7-10.4 [facility] SouthJbaykedELRGFZUXYV9430-83-21 14:47:00 Test Item Value Reference Range Interpretation Comments MCHC (test code = MCHC) 34.4 32.0-36.0 [facility] SouthGvrlqghPAFUBXVIPE4958-17-24 14:47:00 Test Item Value Reference Range Interpretation Comments RDW (test code = RDW) 12.9 11.5-14.5 [facility] SouthCrpkjjvFQKTNJOJPP9487-13-76 14:47:00 Test Item Value Reference Range Interpretation Comments Platelet (test code = Platelet) 100 133-450 [facility] SouthJvpfsknNDFGPSGRCS8825-94-33 14:47:00 Test Item Value Reference Range Interpretation Comments MPV (test code = MPV) 9.4 7.4-10.4 [facility] SouthJvflmupNVVKQPUTOY8141-49-32 14:47:00 Test Item Value Reference Range Interpretation Comments Hgb (test code = Hgb) 11.1 12.0-16.0 [facility] SouthBlkracgIFTPOOXXIB7054-61-47 14:47:00 Test Item Value Reference Range Interpretation Comments RBC (test code = RBC) 3.55 4.20-5.40 [facility] SouthYwxwkamCENWUVGLHO6756-78-88 14:47:00 Test Item Value Reference Range Interpretation Comments Hct (test code = Hct) 32.1 36.0-48.0 [facility] SouthWnuewfyOVXUMLGPOT0807-74-41 14:47:00 Test Item Value Reference Range Interpretation Comments MCV (test code = MCV) 90.3 80.0-98.0 [facility] SouthBzrrucpRGMXAKQZVV9668-38-25 14:47:00 Test Item Value Reference Range Interpretation Comments RBC Morph (test code = Normal (04/11/14 8:47 RBC Morph) AM) [facility] SouthLfevvweZVRPYWONIB8553-62-08 14:47:00 Test Item Value Reference Range Interpretation Comments Plt Morph (test code = Normal (04/11/14 8:47 Plt Morph) AM) [facility] SouthNexmodnDHPUIDNTVT5961-76-27 14:47:00 Test Item Value Reference Range Interpretation Comments Monocytes # (test code 0.4 See_Comment [Aut omated message] The = Monocytes #) system which generated this result tra nsmitted reference range : <=0.8. The reference r davis was not used to int erpret this result as normal/abnormal . [facility] SouthOsnvuxeYYWAECJLND4771-43-85 14:47:00 Test Item Value Reference Range Interpretation Comments Eosinophils # (test code 0.0 See_Comment [A utomated message] The = Eosinophils #) system whic h generated this result tra nsmitted reference range : <=0.5. The reference r davis was not used to int erpret this result as normal/abnormal . [facility] SouthVytofmyBZTDPXULRE0125-72-95 14:47:00 Test Item Value Reference Range Interpretation Comments Segs (test code = Segs) 18.0 45.0-75.0 [facility] SouthPkaxrasPXKCIUSXCI8881-74-12 14:47:00 Test Item Value Reference Range Interpretation Comments Bands (test code = 25.0 See_Comment [Automat ed message] The Bands) system which ge nerated this result transmit jihan reference range : <=11.0. The reference r davis was not used to interpr et this result as fernando l/abnormal. [facility] SouthVacviauUABLSSRURC0274-85-82 14:47:00 Test Item Value Reference Range Interpretation Comments Lymphocytes (test code = Lymphocytes) 37.0 20.0-40.0 [facility] SouthOzgfbdlUTXUQLMQUK9534-90-98 14:47:00 Test Item Value Reference Range Interpretation Comments Lymphocytes # (test code = Lymphocytes 0.9 1.0-5.5 #) [facility] SouthMkovsqdXOZWUSGMMV7125-13-60 14:47:00 Test Item Value Reference Range Interpretation Comments Segs-Bands # (test code = Segs-Bands #) 1.0 1.5-8.1 [facility] SouthMvalpgzPVJWZEBSOE8354-88-23 14:47:00 Test Item Value Reference Range Interpretation Comments Monocytes (test code = Monocytes) 15.0 2.0-12.0 [facility] SouthRlnqtaaCKXRZGGCTL2860-95-51 14:47:00 Test Item Value Reference Range Interpretation Comments Eosinophils (test code = 1.0 See_Comment [A utomated message] The Eosinophils) system which ge nerated this result tra nsmitted reference range : <=4.0. The reference r davis was not used to int erpret this result as normal/abnormal . [facility] SouthEyappbiDKGLTODAPY3597-16-23 14:47:00 Test Item Value Reference Range Interpretation Comments Metamyelocytes (test code 2.0 See_Comment [ Automated message] = Metamyelocytes) The system which generated this result transmitted ref erence range: <=1.0. T he reference range was not used to int erpret this result as normal/abnormal . [facility] SouthDvofuslEYZFNZTKZL7273-21-51 14:47:00 Test Item Value Reference Range Interpretation Comments Atypical Lymphs (test code = Atypical 2.0 Lymphs) [facility]2015-01-20 14:47:00 Test Item Value Reference Range Interpretation Comments eGFR (test code = eGFR) 107 [facility]2015-01-20 14:47:00 Test Item Value Reference Range Interpretation Comments ALT (test code = ALT) 41 See_Comment [Auto mated message] The system which ge nerated this result transmit jihan reference range : <=65. The reference range was not used to interpr et this result as fernando l/abnormal. [facility]2015-01-20 14:47:00 Test Item Value Reference Range Interpretation Comments Alk Phos (test code = Alk Phos) 69 39-136 [facility]2015-01-20 14:47:00 Test Item Value Reference Range Interpretation Comments Bili Total (test code = Bili Total) 0.4 0.2-1.3 [facility]2015-01-20 14:47:00 Test Item Value Reference Range Interpretation Comments Chloride Lvl (test code = Chloride Lvl) 107 95-109 [facility]2015-01-20 14:47:00 Test Item Value Reference Range Interpretation Comments AST (test code = AST) 20 See_Comment [Auto mated message] The system which ge nerated this result transmit jihan reference range : <=37. The reference range was not used to interpr et this result as fernando l/abnormal. [facility]2015-01-20 14:47:00 Test Item Value Reference Range Interpretation Comments CO2 (test code = CO2) 28 24-32 [facility]2015-01-20 14:47:00 Test Item Value Reference Range Interpretation Comments Calcium Lvl (test code = Calcium Lvl) 9.1 8.5-10.5 [facility]2015-01-20 14:47:00 Test Item Value Reference Range Interpretation Comments Total Protein (test code = Total 6.2 6.4-8.4 Protein) [facility]2015-01-20 14:47:00 Test Item Value Reference Range Interpretation Comments Albumin Lvl (test code = Albumin Lvl) 2.9 3.5-5.0 [facility]2015-01-20 14:47:00 Test Item Value Reference Range Interpretation Comments Glucose Lvl (test code = Glucose Lvl) 101 70-99 [facility]2015-01-20 14:47:00 Test Item Value Reference Range Interpretation Comments BUN (test code = BUN) 6 7-22 [facility]2015-01-20 14:47:00 Test Item Value Reference Range Interpretation Comments Creatinine Lvl (test code = Creatinine 0.6 0.5-1.4 Lvl) [facility]2015-01-20 14:47:00 Test Item Value Reference Range Interpretation Comments Sodium Lvl (test code = Sodium Lvl) 138 135-145 [facility]2015-01-20 14:47:00 Test Item Value Reference Range Interpretation Comments Potassium Lvl (test code = Potassium 4.3 3.5-5.1 Lvl) [facility]2015-01-20 14:47:00 Test Item Value Reference Range Interpretation Comments AGAP (test code = AGAP) 7.3 10.0-20.0 [facility]2015-01-20 14:47:00 Test Item Value Reference Range Interpretation Comments A/G Ratio (test code = A/G Ratio) 0.9 0.7-1.6 [facility]2015-01-20 14:47:00 Test Item Value Reference Range Interpretation Comments B/C Ratio (test code = B/C Ratio) 10 6-25 [facility]2015-01-20 14:47:00 Test Item Value Reference Range Interpretation Comments Globulin (test code = Globulin) 3.3 2.0-4.0 [facility] SouthDpluxabBLNSICIBIA9794-32-52 14:47:00 Test Item Value Reference Range Interpretation Comments MCH (test code = MCH) 31.1 pg 27.0-31.0 [facility] SouthHorvzxgFDFUWYTJQA1421-87-49 14:47:00 Test Item Value Reference Range Interpretation Comments WBC (test code = WBC) 2.4 3.7-10.4 [facility] SouthAvitvjsJFZQIJFTZY0200-69-00 14:47:00 Test Item Value Reference Range Interpretation Comments MCHC (test code = MCHC) 34.4 32.0-36.0 [facility] SouthTjwhktfNJKNPUGFSH5772-31-11 14:47:00 Test Item Value Reference Range Interpretation Comments RDW (test code = RDW) 12.9 11.5-14.5 [facility] SouthMmmpazqJDOKUTEABR5415-15-64 14:47:00 Test Item Value Reference Range Interpretation Comments Platelet (test code = Platelet) 100 133-450 [facility] SouthIorimytGVYCEZJQZW0664-34-71 14:47:00 Test Item Value Reference Range Interpretation Comments MPV (test code = MPV) 9.4 7.4-10.4 [facility] SouthFxlmhztZEIQJBEXDE1758-67-95 14:47:00 Test Item Value Reference Range Interpretation Comments Hgb (test code = Hgb) 11.1 12.0-16.0 [facility] SouthTnfazrvASTPCSJKVE1566-00-34 14:47:00 Test Item Value Reference Range Interpretation Comments RBC (test code = RBC) 3.55 4.20-5.40 [facility] SouthZbbbextFIZIDNBPXN8107-29-51 14:47:00 Test Item Value Reference Range Interpretation Comments Hct (test code = Hct) 32.1 36.0-48.0 [facility] SouthQvpgfzpMEYPVSNZZJ9874-45-18 14:47:00 Test Item Value Reference Range Interpretation Comments MCV (test code = MCV) 90.3 80.0-98.0 [facility] SouthSgztowfWJCDKUHTYH3692-95-99 14:47:00 Test Item Value Reference Range Interpretation Comments RBC Morph (test code = Normal (04/11/14 8:47 RBC Morph) AM) [facility] SouthWtaspiaPSHRNXAWTP6529-39-10 14:47:00 Test Item Value Reference Range Interpretation Comments Plt Morph (test code = Normal (04/11/14 8:47 Plt Morph) AM) [facility] SouthTnusvztBJVUUFCZRC1960-61-63 14:47:00 Test Item Value Reference Range Interpretation Comments Monocytes # (test code 0.4 See_Comment [Aut omated message] The = Monocytes #) system which generated this result tra nsmitted reference range : <=0.8. The reference r davis was not used to int erpret this result as normal/abnormal . [facility] SouthPxwjbuuLNZCLEIHHL7654-74-96 14:47:00 Test Item Value Reference Range Interpretation Comments Eosinophils # (test code 0.0 See_Comment [A utomated message] The = Eosinophils #) system whic h generated this result tra nsmitted reference range : <=0.5. The reference r davis was not used to int erpret this result as normal/abnormal . [facility] SouthNiugkvuCMQYYTTVVG5472-80-08 14:47:00 Test Item Value Reference Range Interpretation Comments Segs (test code = Segs) 18.0 45.0-75.0 [facility] SouthSzumwtyXAXWPEPQEQ0800-01-26 14:47:00 Test Item Value Reference Range Interpretation Comments Bands (test code = 25.0 See_Comment [Automat ed message] The Bands) system which ge nerated this result transmit jihan reference range : <=11.0. The reference r davis was not used to interpr et this result as fernando l/abnormal. [facility] SouthWgecbdjRJFZHKXDKL8312-02-29 14:47:00 Test Item Value Reference Range Interpretation Comments Lymphocytes (test code = Lymphocytes) 37.0 20.0-40.0 [facility] SouthYjpvnmfIHPWZZNSIF1466-70-21 14:47:00 Test Item Value Reference Range Interpretation Comments Lymphocytes # (test code = Lymphocytes 0.9 1.0-5.5 #) [facility] SouthSluaowpUGAOVISUBF6506-36-40 14:47:00 Test Item Value Reference Range Interpretation Comments Segs-Bands # (test code = Segs-Bands #) 1.0 1.5-8.1 [facility] SouthJifeoqpNCWZOTILLO9058-06-79 14:47:00 Test Item Value Reference Range Interpretation Comments Monocytes (test code = Monocytes) 15.0 2.0-12.0 [facility] SouthNswlcwrABFDBLJIKK2996-45-11 14:47:00 Test Item Value Reference Range Interpretation Comments Eosinophils (test code = 1.0 See_Comment [A utomated message] The Eosinophils) system which ge nerated this result tra nsmitted reference range : <=4.0. The reference r davis was not used to int erpret this result as normal/abnormal . [facility] SouthFvzfnshKGZCBHGGKM2431-43-39 14:47:00 Test Item Value Reference Range Interpretation Comments Metamyelocytes (test code 2.0 See_Comment [ Automated message] = Metamyelocytes) The system which generated this result transmitted ref erence range: <=1.0. T he reference range was not used to int erpret this result as normal/abnormal . [facility] SouthBcdsmdhEQDDIQNEZL7702-29-82 14:47:00 Test Item Value Reference Range Interpretation Comments Atypical Lymphs (test code = Atypical 2.0 Lymphs) [facility]2015-01-20 14:47:00 Test Item Value Reference Range Interpretation Comments eGFR (test code = eGFR) 107 [facility]2015-01-20 14:47:00 Test Item Value Reference Range Interpretation Comments ALT (test code = ALT) 41 See_Comment [Auto mated message] The system which ge nerated this result transmit jihan reference range : <=65. The reference range was not used to interpr et this result as fernando l/abnormal. [facility] FVVRI1175[facility] 14:47:00 Test Item Value Reference Range Interpretation Comments Alk Phos (test code = Alk Phos) 69 39-136 [facility]2015-01-20 14:47:00 Test Item Value Reference Range Interpretation Comments Bili Total (test code = Bili Total) 0.4 0.2-1.3 [facility]2015-01-20 14:47:00 Test Item Value Reference Range Interpretation Comments Chloride Lvl (test code = Chloride Lvl) 107 95-109 [facility]
[2022-02-25] MEDS ORDERED: METOCLOPRAMIDE 10 MG/2mL INJ ONE (23:00)
[2022-02-25] MEDS ORDERED: cloNIDine HCL 0.1 MG TAB ONE (23:00)
[2022-02-25] MEDS ORDERED: DIPHENHYDRAMINE 50 MG/ML VIAL ONE (23:00)
[2022-02-25] MEDS ORDERED: ACETAMINOPHEN 500 MG TAB ONE (23:01)
[2022-02-25] MEDS ORDERED: NA CHLORIDE 0.9% 1,000 ML ONE (23:01)
[2022-02-25 23:10] LABS: Urine Blood Trace-intact (Negative); Urine Glucose Negative (Negative); Urine Protein Negative (Negative)
[2022-02-25 23:42] LABS: Protime INR 0.92
[2022-02-25 23:50] LABS: Absolute Lymphocytes (CBC) 1.5 K/uL (0.7-4.9); Lymphocytes % 35.4 % (15.3-44.8); MCV 90.2 fL (80-100); RBC Red Blood Cell Count 4.43 M/uL (3.86-4.86)
[2022-02-26 00:02] LABS: ALT/SGPT 36 U/L (12-78); AST/SGOT 17 U/L (15-37); Albumin 3.7 g/dL (3.4-5.0); Alkaline Phosphatase 119 U/L (45-117); BUN Blood Urea Nitrogen 21 mg/dL (7-18); Bicarbonate 29 mmol/L (21-32); Bilirubin Total 0.4 mg/dL (0.2-1.0); Glomerular Filtration Rate 100 ml/min (=/>90); Glucose Level 140 mg/dL (74-106); Magnesium 2.4 mg/dL (1.8-2.4); NT PRO-BNP 40 pg/mL (<125); Potassium 3.6 mmol/L (3.5-5.1); Protein, Total 7.7 g/dL (6.4-8.2); Sodium Level 138 mmol/L (136-145)
[2022-02-26 00:09] LABS: Bilirubin Direct < 0.1 mg/dL (0-0.2)
[2022-02-26 00:10] LABS: Troponin High Sensitivity 108.9 pg/mL (<58.9)
--- NOTE | 2022-02-26 01:25 | ER ---
Nurse's Notes [facility] Name: Annalisa Au Age: 56 yrs Sex: Female : 1965 Arrival Date: 02/25/2022 Time: 22:31 Bed 24 Private MD: Diagnosis: Headache;Hypertensive heart disease without heart failure;Diabetes mellitus due to underlying condition with hyperglycemia Presentation: 02/25 22:44 Chief complaint: Patient states: "yesterday she started feeling tingling and numbness em6 in both arms and she was having a headache. we checked her blood pressure and it was high. she stopped taking her metoprolol and lisinopril about a month ago because she was managing with diet. but yesterday because of the high blood pressure she retook them". Coronavirus screen: Client denies travel out of the [place] in the last 14 days. Ebola Screen: Patient negative for fever greater than or equal to 101.5 degrees Fahrenheit, and additional compatible Ebola Virus Disease symptoms. Initial Sepsis Screen: Does the patient meet any 2 criteria? No. Patient's initial sepsis screen is negative. Does the patient have a suspected source of infection? No. Patient's initial sepsis screen is negative. Risk Assessment: Do you want to hurt yourself or someone else? Patient reports no desire to harm self or others. Onset of symptoms was February 24, 2022. 22:44 Method Of Arrival: Ambulatory em6 22:44 Acuity: MICKI 2 em6 Triage Assessment: 22:48 General: Appears uncomfortable, Behavior is cooperative. Pain: Complains of pain in em6 head Pain does not radiate. Pain currently is 8 out of 10 on a pain scale. Quality of pain is described as pressure. Historical: - Allergies: 22:49 PENICILLINS; em6 - Home Meds: 22:49 lisinopril 20 mg Oral tab once daily [Active]; metoprolol succinate 50 mg Oral Tb24 em6 once daily [Active]; - PMHx: 22:49 breast cancer; diabetes mellitus; Hypertensive disorder; em6 - PSHx: 22:49 right mastectomy; em6 - Immunization history:: Adult Immunizations up to date. - Social history:: Smoking status: Patient denies any tobacco usage or history of. Screenin:48 Abuse screen: Denies threats or abuse. Nutritional screening: No deficits noted. em6 Tuberculosis screening: No symptoms or risk factors identified. 23:14 Fall Risk No fall in past 12 months (0 pts). Secondary diagnosis (15 points) IV access tw5 (20 points). Assessment: 23:14 General: Reports Daughter " She has been really tired, her arms feel weak. It started tw5 with the right arm and then she started having big headaches and her blood pressure started getting high. This has been going for two days now.". Pain: Complains of pain in headache Pain currently is 8 out of 10 on a pain scale. Neuro: Level of Consciousness is awake, alert, obeys commands, Oriented to person, place, time, situation. Cardiovascular: Rhythm is sinus rhythm. Respiratory: Airway is patent. 12 00:24 General: Reports "The pain is gone, but my head feels heavy.". tw5 01:19 Reassessment: Patient appears in no apparent distress at this time. No changes from tw5 previously documented assessment. 01:35 Reassessment: Patient states feeling better. Patient states symptoms have improved. tw5 Vital Signs: 02/25 22:44 BP 199 / 108; Pulse 81; Resp 20; Temp 98.4; Pulse Ox 98% on R/A; Weight 63.05 kg; em6 Height 5 ft. 3 in. (160.02 cm); Pain 8/10; 23:25 BP 181 / 108; Pulse 74; Resp 14; Pulse Ox 97% on R/A; tw5 1207 00:24 BP 112 / 82; Pulse 75; Resp 18; Pulse Ox 97% on R/A; tw5 01:19 BP 113 / 75; Pulse 73; Resp 18; Pulse Ox 100% on R/A; tw5 01:35 BP 107 / 74; Pulse 72; Resp 18; Pulse Ox 100% on R/A; tw5 02/25 22:44 Body Mass Index 24.62 (63.05 kg, 160.02 cm) em6 ED Course: 02/25 22:31 Patient arrived in ED. bp1 22:36 David Pollack PA is PHCP. cp 22:36 David Estrella MD is Attending Physician. cp 22:48 Triage completed. em6 22:49 Arm band placed on. em6 22:49 Placed in gown. Bed in low position. Call light in reach. Side rails up X 1. Pulse ox em6 on. NIBP on. Warm blanket given. 22:55 Beronica Rodgers is Primary Nurse. tw5 23:14 EKG done. tw5 23:16 Urine collected: clean catch specimen. tw5 23:21 XRAY Chest (1 view) In Process Unspecified. EDMS 23:24 Urine Microscopic Only Sent. tw5 23:24 Basic Metabolic Panel Sent. tw5 23:24 CBC with Diff Sent. tw5 23:24 LFT's Sent. tw5 23:24 Magnesium Sent. tw5 23:24 Troponin HS Sent. tw5 23:24 PT-INR Sent. tw5 23:24 NT PRO-BNP Sent. tw5 23:25 Initial lab(s) drawn, by me, sent to lab. Inserted saline lock: 20 gauge in left tw5 forearm, using aseptic technique. Blood collected. 23:26 No provider procedures requiring assistance completed. tw5 23:47 CT Head Brain wo Cont In Process Unspecified. EDMS 02/26 01:35 IV discontinued, intact, bleeding controlled, No redness/swelling at site. Pressure tw5 dressing applied. Administered Medications: 02/25 23:24 Drug: Tylenol 1000 mg Route: PO; 02/26 00:25 Follow up: Response: No adverse reaction tw5 02/25 23:24 Drug: cloNIDine 0.1 mg Route: PO; tw02/26 00:25 Follow up: Response: No adverse reaction; Blood sugar is lowered tw5 02/25 23:29 Drug: NS 0.9% 1000 ml Route: IV; Rate: 1000 calculated rate; Site: left forearm; 23:29 Drug: Reglan (metoCLOPramide) 10 mg Route: IVP; Site: left forearm; tw02/26 00:25 Follow up: Response: No adverse reaction tw5 02/25 23:29 Drug: Benadryl (diphenhydrAMINE) 12.5 mg Route: IVP; Site: right forearm; tw02/26 00:25 Follow up: Response: No adverse reaction tw Medication: 02/25 23:14 VIS not applicable for this client. tw5 Outcome: 02/26 01:25 Discharge ordered by . cp 01:35 Discharged to home ambulatory, with family. tw5 01:35 Condition: improved 01:35 Discharge instructions given to patient, Instructed on discharge instructions, follow up and referral plans. Demonstrated understanding of instructions, follow-up care. 01:35 Patient left the ED. tw Signatures: Dispatcher [employer] EDMS David oPllack PA PA cp [place], Brittany bp1 Wood, Tiffany tw5 Alicia Ireland RN RN em6
--- NOTE | 2022-02-26 01:25 | EDPHYS ---
Physician Documentation [facility] Name: Annalisa Au Age: 56 yrs Sex: Female : 1965 Arrival Date: 02/25/2022 Time: 22:31 Bed 24 Private MD: SINTIA Physician David Estrella HPI: 02/25 23:00 This 56 yrs old Female presents to ER via Ambulatory with complaints of High cp Blood Pressure. 23:00 The patient complains of pain to the top and back of head. cp 23:00 The patient describes the headache as aching, constant, throbbing. cp 23:00 Onset: The symptoms/episode began/occurred yesterday, and became worse today. The cp patient has elevated blood pressure and discovered this at home. Associated signs and symptoms: Pertinent positives: Photophobia. Daughter translates. Reports patient with history of hypertension and "pre-diabetes". Stopped taking blood pressure medication, Metoprolol 50 mg and lisinopril 20 mg, about 1 month ago and was controlling blood pressure and diabetes with diet. Patient observed blood pressure to be high yesterday, headache started yesterday so patient started taking blood pressure medications again. Took Lisinopril 20 mg and only 25 mg metoprolol. Historical: - Allergies: 22:49 PENICILLINS; em6 - Home Meds: 22:49 lisinopril 20 mg Oral tab once daily [Active]; metoprolol succinate 50 mg Oral Tb24 em6 once daily [Active]; - PMHx: 22:49 breast cancer; diabetes mellitus; Hypertensive disorder; em6 - PSHx: 22:49 right mastectomy; em6 - Immunization history:: Adult Immunizations up to date. - Social history:: Smoking status: Patient denies any tobacco usage or history of. ROS: 23:05 Constitutional: Negative for chills, fever, poor PO intake. cp 23:05 Eyes: Negative for injury, pain, redness, and discharge. cp 23:05 Cardiovascular: Negative for chest pain, edema, palpitations. 23:05 Respiratory: Negative for cough, shortness of breath, wheezing. 23:05 Abdomen/GI: Negative for abdominal pain, nausea, vomiting, and diarrhea. 23:05 Neuro: Positive for headache, tingling, Negative for altered mental status, weakness. 23:05 All other systems are negative. cp Exam: 23:10 Constitutional: The patient appears in no acute distress, alert, awake, cp non-diaphoretic, non-toxic, well developed, well nourished, uncomfortable. 23:10 Head/Face: Normocephalic, atraumatic. cp 23:10 Eyes: Periorbital structures: appear normal, Pupils: equal, round, and reactive to cp light and accomodation, Extraocular movements: intact throughout, Conjunctiva: normal, no exudate, no injection, Sclera: no appreciated abnormality, Lids and lashes: appear normal, bilaterally. 23:10 ENT: External ear(s): are unremarkable, Ear canal(s): are normal, clear, TM's: dullness, bilaterally, Nose: is normal, Mouth: Lips: moist, Oral mucosa: pink and intact, moist, Posterior pharynx: Airway: no evidence of obstruction, patent, swelling, is not appreciated, erythema, is not appreciated, exudate, is not appreciated. 23:10 Neck: ROM/movement: is normal, is supple, without pain, no range of motions limitations, no nuchal rigidity. 23:10 Chest/axilla: Inspection: normal. 23:10 Cardiovascular: Rate: normal, Rhythm: regular, Edema: is not appreciated, JVD: is not appreciated. 23:10 Respiratory: the patient does not display signs of respiratory distress, Respirations: cp normal, no use of accessory muscles, no retractions, labored breathing, is not present, Breath sounds: are clear throughout, no decreased breath sounds, no stridor, no wheezing. 23:10 Abdomen/GI: Inspection: abdomen appears normal, Palpation: abdomen is soft and non-tender, in all quadrants. 23:10 Back: pain, ROM is normal. 23:10 Neuro: Orientation: to person, place \\T\\ time. Mentation: is normal, Motor: moves all fours, strength is normal. 23:15 ECG was reviewed by the Attending Physician. cp Vital Signs: 22:44 BP 199 / 108; Pulse 81; Resp 20; Temp 98.4; Pulse Ox 98% on R/A; Weight 63.05 kg; em6 Height 5 ft. 3 in. (160.02 cm); Pain 8/10; 23:25 BP 181 / 108; Pulse 74; Resp 14; Pulse Ox 97% on R/A; tw5 02/26 00:24 BP 112 / 82; Pulse 75; Resp 18; Pulse Ox 97% on R/A; tw5 01:19 BP 113 / 75; Pulse 73; Resp 18; Pulse Ox 100% on R/A; tw5 01:35 BP 107 / 74; Pulse 72; Resp 18; Pulse Ox 100% on R/A; tw5 02/25 22:44 Body Mass Index 24.62 (63.05 kg, 160.02 cm) em6 MDM: 02/25 22:37 Patient medically screened. cp 02/26 01:25 Data reviewed: vital signs, nurses notes, lab test result(s), EKG, radiologic studies, cp CT scan, plain films. 01:25 Test interpretation: by ED physician or midlevel provider: ECG, plain radiologic cp studies. Counseling: I had a detailed discussion with the patient and/or guardian regarding: the historical points, exam findings, and any diagnostic results supporting the discharge/admit diagnosis, the presence of at least one elevated blood pressure reading (>120/80) during this emergency department visit, lab results, radiology results, the need for outpatient follow up, for definitive care, a family practitioner, to return to the emergency department if symptoms worsen or persist or if there are any questions or concerns that arise at home. Response to treatment: the patient's symptoms have markedly improved after treatment, Blood pressure and headache markedly improved. Labs show elevated troponin but review of records show patient with cardiac cath performed August of 2021 that was normal by Dr Godwin. Patient denies any chest pain. Will discharge to home with instructions to resume hypertensive meds and f/u with primary physician. 02/25 22:51 Order name: Basic Metabolic Panel; Complete Time: 00:31 cp 02/26 00:31 Interpretation: Normal except: GLUC 140; BUN 21. cp 02/25 22:51 Order name: CBC with Diff; Complete Time: 00:06 cp 02/25 22:51 Order name: LFT's; Complete Time: 00:31 cp 02/26 00:31 Interpretation: Normal except: ALK 119; GLOB 4.0; A/G 0.9. cp 02/25 22:51 Order name: Magnesium; Complete Time: 00:31 cp 02/25 22:51 Order name: NT PRO-BNP; Complete Time: 00:31 cp 02/25 22:51 Order name: PT-INR; Complete Time: 00:06 cp 02/25 22:51 Order name: Troponin HS; Complete Time: 00:31 cp 02/26 00:32 Interpretation: Abnormal: Troponin HS 108.9. cp 02/25 22:51 Order name: XRAY Chest (1 view) cp 02/25 22:54 Order name: Urine Microscopic Only; Complete Time: 00:06 cp 02/25 22:56 Order name: CT Head Brain wo Cont cp 02/25 23:10 Order name: Urine Dipstick-Ancillary; Complete Time: 00:06 EDMS 02/26 00:06 Interpretation: Normal except: UBLD Trace-intact; UESTR Trace. cp 02/25 22:51 Order name: EKG; Complete Time: 22:51 cp 02/25 22:51 Order name: Cardiac monitoring; Complete Time: 23:00 cp 02/25 22:51 Order name: EKG - Nurse/Tech; Complete Time: 23:14 cp 02/25 22:51 Order name: IV Saline Lock; Complete Time: 23:24 cp 02/25 22:51 Order name: Labs collected and sent; Complete Time: 23:24 cp 02/25 22:51 Order name: O2 Per Protocol; Complete Time: 23:00 cp 02/25 22:51 Order name: O2 Sat Monitoring; Complete Time: 23:00 cp 02/25 22:54 Order name: Urine Dipstick-Ancillary (obtain specimen); Complete Time: 23:24 cp EC/06 23:15 Rate is 74 beats/min. Rhythm is regular. WA interval is normal. QRS interval is normal. cp QT interval is normal. T waves are Inverted in leads III, aVR. Interpreted by me. Reviewed by me. Administered Medications: 23:24 Drug: Tylenol 1000 mg Route: PO; 02/26 00:25 Follow up: Response: No adverse reaction 02/25 23:24 Drug: cloNIDine 0.1 mg Route: PO; 02/26 00:25 Follow up: Response: No adverse reaction; Blood sugar is lowered 02/25 23:29 Drug: NS 0.9% 1000 ml Route: IV; Rate: 1000 calculated rate; Site: left forearm; 23:29 Drug: Reglan (metoCLOPramide) 10 mg Route: IVP; Site: left forearm; tw5 02/26 00:25 Follow up: Response: No adverse reaction tw5 02/25 23:29 Drug: Benadryl (diphenhydrAMINE) 12.5 mg Route: IVP; Site: right forearm; tw5 02/26 00:25 Follow up: Response: No adverse reaction tw5 Disposition Summary: 02/26/22 01:25 Discharge Ordered Location: Home cp Problem: an acute exacerbation cp Symptoms: have improved cp Condition: Stable cp Diagnosis - Headache cp - Hypertensive heart disease without heart failure cp - Diabetes mellitus due to underlying condition with hyperglycemia cp Followup: cp - With: Private Physician - When: 2 - 3 days - Reason: Recheck today's complaints Discharge Instructions: - Discharge Summary Sheet cp - Hyperglycemia cp - Hypertension, Adult cp - Form - Daily Diabetes Record cp - Blood Glucose Monitoring, Adult cp - Diabetes Mellitus and Nutrition, Adult cp - Aspirin and Your Heart cp - Form - Blood Pressure Record Sheet cp - How to Take Your Blood Pressure cp Forms: - Medication Reconciliation Form cp - Thank You Letter cp - Antibiotic Education cp - Prescription Opioid Use cp Signatures: Dispatcher [employer] EDMS David Pollack PA PA cp Wood, Tiffany tw5 Alicia Ireland, RN RN em6
[2022-02-26 09:27] VITALS: TEMP 98.4
[2022-02-26 09:43] VITALS: O2SAT 100
[2022-02-26 09:44] VITALS: BP 107/74
--- NOTE | 2022-02-26 14:12 | RAD REPORT ---
EXAM DESCRIPTION: RAD - Chest Single View - 02/25/2022 11:19 pm CLINICAL HISTORY: 56 years, Female, htn COMPARISON: None. FINDINGS: Single view of the chest was obtained portable. No prior films are available for compariso n. External EKG leads within the [id number] limits diagnosis. The cardiomediastinal silhouette dem onstrate to be unremarkable. The heart is not enlarged. The thoracic aorta is unremarkable. The pulmo nary vasculature is normal distribution. Costophrenic angles are sharp. No areas of consolidation o r masses are seen. Are clipped within the right axillary area suggests lymph node dissection. The res t of the soft tissue and bony structures demonstrate to be unremarkable. IMPRESSION: NO ACUTE CARDIOPULMONARY DISEASE SEEN. Electronically signed by: Stuart King MD 02/25/2022 11:43 PM HARBOR TUG CAPTAIN Due to temporary technical issues with the PACS/Fluency reporting system, reports are being signed by the in house radiologists without review as a courtesy to insure prompt reporting. The interpreting radiologist is fully responsible for the content of the report.
--- NOTE | 2022-02-26 14:21 | RAD REPORT ---
EXAM DESCRIPTION: CT - Head Brain Wo Cont - 02/26/2022 7:16 am CLINICAL HISTORY: Headache, htn. TECHNIQUE: Noncontrast CT through the head was performed. Axial, coronal, and sagittal reconstructio ns were created and sent to PACS. This exam was performed according to our departmental dose-optimiza tion program which includes use of Automated Exposure Control, adjustment of the mA and/or kV accordi ng to patient size and/or use of iterative reconstruction technique. COMPARISON: CT head from January 05, 2021. FINDINGS: The brain parenchyma appears unremarkable. There is no intra-axial or extra-axial bleed se en. There is no mass or mass effect. The ventricles are unremarkable. The orbital contents appear unr emarkable. The visualized paranasal sinuses and mastoid air cells are patent. No acute fracture is identified. IMPRESSION: No acute intracranial abnormality identified. Electronically signed by: Yajaira Heredia MD 02/25/2022 11:59 PM ARC CUTTER Due to temporary technical issues with the PACS/Fluency reporting system, reports are being signed by the in house radiologists without review as a courtesy to insure prompt reporting. The interpreting radiologist is fully responsible for the content of the report.
== END 2022-02-26 01:35 | disposition home or self-care (01) ==
LOC: ER 22:27
DX: I11.9 Hypertensive heart disease without heart failure (principal); E11.65 Type 2 diabetes mellitus with hyperglycemia; Z88.0 Allergy status to penicillin
CPT/HCPCS: 36415; 70450; 71045; 80048; 80076; 81003; 81015; 83735; 83880; 84484; 85025; 85610; 93005; 99284; J1200; J2765; J7030

== ENCOUNTER → 2023-06-16 | Emergency (ER) | payer OTHER ==
[~2023-06-16] MED LIST: CIPROFLOXACIN 400mg IV 400 MG/200 ML BAG IV ONE; NA CHLORIDE 0.9% 1,000 ML ONE
[2023-06-16 09:05] LABS: Absolute Lymphocytes (CBC) 1.6 K/uL (0.7-4.9); Absolute Monocytes 0.4 K/uL (0.1-1.3); Absolute Neutrophil 4.4 K/uL (1.8-8.0); Basophils % 0.2 % (0-1.3); Eosinophils % 0.6 % (0-4.4); Hematocrit 38.5 % (36.0-45.0); Hemoglobin 12.9 g/dL (12.0-15.0); Lymphocytes % 25.2 % (15.3-44.8); MCH 30.6 pg (27.0-35.0); MCHC 33.6 g/dL (32.0-36.0); MCV 91.1 fL (80-100); MPV 8.7 fL (7.6-11.3); Monocytes % 6.5 % (3.3-12.3); Neutrophils % 67.5 % (41.7-73.7); Platelets 170 thou/uL (152-406); RBC Red Blood Cell Count 4.23 M/uL (3.86-4.86); Red Cell Distribution Width 13.2 % (12.1-15.2)
[2023-06-16 09:30] LABS: Albumin 3.7 g/dL (3.4-5.0); Anion Gap 6.5 mEq/L (5.0-15.0); Bilirubin Total 0.6 mg/dL (0.2-1.0); Globulin 3.7 g/dL (2.3-3.5); Potassium 3.5 mEq/L (3.5-5.1); Protein, Total 7.4 g/dL (6.4-8.2)
[2023-06-16 09:37] LABS: Specific Gravity 1.018 (1.005-1.030); Sqamous Epithelial <5 /HPF (None Seen); Urine Bacteria >50 /HPF (<20); Urine Bilirubin NEGATIVE (Negative); Urine Blood 2+ (Negative); Urine Clarity Extremely Turbid (Clear); Urine Color Light-Yellow (Yellow); Urine Culture Reflex Order REFLEXED; Urine Glucose NEGATIVE (Negative); Urine Ketones NEGATIVE (Negative); Urine Microscopic Reflex YN ORDER UMIC; Urine Mucus Slight /HPF (None Seen); Urine Nitrite NEGATIVE (Negative); Urine Protein 1+ (Negative); Urine RBC >50 /HPF (None Seen); Urine Urobilinogen Normal (Normal); Urine WBC >50 /HPF (<5); Urine WBC Clump Occasional /HPF (None Seen)
--- NOTE | 2023-06-16 10:14 | ER ---
Nurse's Notes [facility] Name: Annalisa Au Age: 57 yrs Sex: Female : 1965 Arrival Date: 06/16/2023 Time: 08:14 Bed 4 Private MD: Diagnosis: UTI/ Urinary tract infection, site not specified Presentation: 06/15 08:29 Chief complaint: Mid back pain, suprapubic pain,and pain with urination x 4 days. hb Coronavirus screen: At this time, the client does not indicate any symptoms associated with coronavirus-19. Ebola Screen: No symptoms or risks identified at this time. Initial Sepsis Screen: Does the patient meet any 2 criteria? No. Patient's initial sepsis screen is negative. Does the patient have a suspected source of infection? No. Patient's initial sepsis screen is negative. Risk Assessment: Do you want to hurt yourself or someone else? Patient reports no desire to harm self or others. Onset of symptoms was June 13, 2023. 08:29 Method Of Arrival: Ambulatory 08:29 Acuity: MICKI 3 hb Triage Assessment: 08:31 General: Appears in no apparent distress. uncomfortable, Behavior is calm, cooperative. hb Pain: Pain currently is 5 out of 10 on a pain scale. Neuro: Level of Consciousness is awake, alert, obeys commands, Oriented to person, place, time, situation. Cardiovascular: Patient's skin is warm and dry. Respiratory: Respiratory effort is even, unlabored, Respiratory pattern is regular, symmetrical. GI:. : Reports pain in mid back, suprapubic, and with urination. Historical: - Allergies: 08:31 PENICILLINS; hb - Home Meds: 08:31 lisinopril-hydrochlorothiazide 20-12.5 mg oral tablet 0.5 tabs daily [Active]; hb - PMHx: 08:31 breast cancer; diabetes mellitus; Hypertensive disorder; hb - PSHx: 08:31 right mastectomy; Cholecystectomy; hb - Immunization history:: Adult Immunizations up to date. - Social history:: Smoking status: Patient denies any tobacco usage or history of. - Family history:: not pertinent. Screenin:30 [facility] ED Fall Risk Assessment (Adult) History of falling in the last 3 months, ko1 including since admission No falls in past 3 months (0 pts) Confusion or Disorientation No (0 pts) Intoxicated or Sedated No (0 pts) Impaired Gait Yes (1 pt) Mobility Assist Device Used No (0 pt) Altered Elimination No (0 pt) Score/Fall Risk Level 0 - 2 = Low Risk Oriented to surroundings, Maintained a safe environment, Educated pt \T\ family on fall prevention, incl call for assistance when getting out of bed, Assessed \T\ reinforced patient's understanding of fall precautions, Provided non-skid footwear, Hourly rounding (assess needs \T\ fall precautionary measures) done, Used ambulatory aids as needed (educated on \T\ assisted with), Used gait belt as appropriate. Abuse screen: Denies threats or abuse. Denies injuries from another. Nutritional screening: No deficits noted. Tuberculosis screening: No symptoms or risk factors identified. Assessment: 08:30 General: Appears in no apparent distress. Behavior is calm, cooperative, appropriate ko1 for age. Pain: Complains of pain in abdomen. Neuro: No deficits noted. Cardiovascular: No deficits noted. Respiratory: No deficits noted. GI: Bowel sounds present X 4 quads. Abd is soft and non tender. : No deficits noted. EENT: No deficits noted. Derm: No deficits noted. Musculoskeletal: No deficits noted. Vital Signs: 08:29 BP 146 / 91; Pulse 81; Resp 16; Temp 98.3(O); Pulse Ox 98% on R/A; Weight 64.86 kg; hb Height 5 ft. 4 in. ; Pain 5/10; 09:30 BP 138 / 88; Pulse 78; Resp 15; Pulse Ox 99% ; ko1 10:26 BP 140 / 84; Pulse 82; Resp 15; Pulse Ox 99% ; ko1 08:29 Body Mass Index 24.55 (64.86 kg, 162.56 cm) hb 08:29 Pain Scale: Adult hb ED Course: 08:18 Patient arrived in ED. im 08:21 Jaime Wood MD is Attending Physician. rt 08:30 Patient has correct armband on for positive identification. Allergy band placed. Bed in ko1 low position. Call light in reach. Side rails up X 1. Provided Education on: ba. Door closed. Noise minimized. Warm blanket given. Assisted to bathroom. 08:30 No provider procedures requiring assistance completed. ko1 08:31 Triage completed. hb 08:31 Arm band placed on. hb 08:33 Client placed on continuous cardiac and pulse oximetry monitoring. NIBP monitoring hb applied. Pulse ox on. NIBP on. 08:56 Yaquelin Robbins, RN is Primary Nurse. ko1 09:04 CBC with Diff Sent. ko1 09:04 CMP Sent. ko1 09:04 Urinalysis w/ reflexes Sent. ko1 09:04 Initial lab(s) drawn, by ED staff, sent to lab. Urine collected: clean catch specimen. hb 09:04 Inserted saline lock: 20 gauge in left antecubital area, using aseptic technique. hb ,using aseptic technique. by ed staff Blood collected. 10:28 IV discontinued, intact, bleeding controlled, No redness/swelling at site. Pressure ko1 dressing applied. Administered Medications: 09:04 Drug: NS 0.9% IV 1000 ml IV at 1 bolus Per protocol; 1000 mL bolus Route: IV; Rate: 1 ko1 bolus; Site: left antecubital; 10:00 Follow up: Response: No adverse reaction; IV Status: Completed infusion; IV Intake: ko1 1000ml 09:04 Drug: Ciprofloxacin IVPB 400 mg 200 ml IVPB once over 60 mins Volume: 200 ml; Route: ko1 IVPB; Infused Over: 60 mins; Site: left antecubital; 10:00 Follow up: Response: No adverse reaction; IV Status: Completed infusion; IV Intake: ko1 200ml Medication: 09:30 VIS not applicable for this client. ko1 Intake: 10:00 IV: 200ml; Total: 200ml. ko1 10:00 IV: 1000ml; Total: 1200ml. ko1 Outcome: 10:13 Discharge ordered by . rt 10:28 Discharged to home ambulatory, with family, ko1 10:28 Condition: stable 10:28 Discharge instructions given to patient, family, Instructed on discharge instructions, follow up and referral plans. medication usage, Demonstrated understanding of instructions, follow-up care, medications, Prescriptions given X 1, 10:29 Patient left the ED. ko1 Signatures: Beulah Dunlap RN RN Yaquelin Robbins, RN RN ko1 Jaime Wood MD MD rt Aure Hampton im Corrections: (The following items were deleted from the chart) 08:32 08:31 Home Meds: lisinopril 20 mg Oral tab once daily; hb hb
--- NOTE | 2023-06-16 10:14 | EDPHYS ---
Physician Documentation [facility] Name: Annalisa Au Age: 57 yrs Sex: Female : 1965 Arrival Date: 06/16/2023 Time: 08:14 Bed 4 Private MD: ED Physician Jaime Wood HPI: 06/15 10:15 This 57 yrs old Female presents to ER via Ambulatory with complaints of rt Abdominal Pain, Low Back Pain, Pain With Urination. 10:15 Patient presents to the ED with a lower abdominal discomfort as well as burning with rt urination. Reports of low back pain with generalized weakness. Denies other acute complaints at this time, symptoms are moderate in severity, no other aggravating or alleviating factors.. Historical: - Allergies: 08:31 PENICILLINS; hb - Home Meds: 08:31 lisinopril-hydrochlorothiazide 20-12.5 mg oral tablet 0.5 tabs daily [Active]; hb - PMHx: 08:31 breast cancer; diabetes mellitus; Hypertensive disorder; hb - PSHx: 08:31 right mastectomy; Cholecystectomy; hb - Immunization history:: Adult Immunizations up to date. - Social history:: Smoking status: Patient denies any tobacco usage or history of. - Family history:: not pertinent. ROS: 10:15 Constitutional: Negative for fever, chills, and weight loss, Cardiovascular: Negative rt for chest pain, palpitations, and edema, Respiratory: Negative for shortness of breath, cough, wheezing, and pleuritic chest pain, MS/Extremity: Negative for injury and deformity, 10:15 Abdomen/GI: Positive for abdominal pain, Negative for nausea and vomiting, 10:15 : Positive for burning with urination, Negative for hematuria, 10:15 Neuro: Positive for weakness, Negative for altered mental status, Exam: 10:15 Constitutional: This is a well developed, well nourished patient who is awake, alert, rt and in no acute distress. Head/Face: Normocephalic, atraumatic. Chest/axilla: Normal chest wall appearance and motion. Nontender with no deformity. No lesions are appreciated. Cardiovascular: Regular rate and rhythm with a normal S1 and S2. No gallops, murmurs, or rubs. Normal PMI, no JVD. No pulse deficits. Respiratory: Lungs have equal breath sounds bilaterally, clear to auscultation and percussion. No rales, rhonchi or wheezes noted. No increased work of breathing, no retractions or nasal flaring. Skin: Warm, dry with normal turgor. Normal color with no rashes, no lesions, and no evidence of cellulitis. MS/ Extremity: Pulses equal, no cyanosis. Neurovascular intact. Full, normal range of motion. 10:15 Abdomen/GI: Minimal suprapubic tenderness, no focal right lower quadrant tenderness, no costovertebral angle tenderness, Vital Signs: 08:29 BP 146 / 91; Pulse 81; Resp 16; Temp 98.3(O); Pulse Ox 98% on R/A; Weight 64.86 kg; hb Height 5 ft. 4 in. ; Pain 5/10; 09:30 BP 138 / 88; Pulse 78; Resp 15; Pulse Ox 99% ; ko1 10:26 BP 140 / 84; Pulse 82; Resp 15; Pulse Ox 99% ; ko1 08:29 Body Mass Index 24.55 (64.86 kg, 162.56 cm) hb 08:29 Pain Scale: Adult hb MDM: 08:28 Patient medically screened. rt 10:15 Differential diagnosis: UTI, pyelo-, kidney stone. Data reviewed: vital signs, nurses rt notes. I considered the following discharge prescriptions or medication management in the emergency department Medications were administered in the Emergency Department. See MAR. Test considered but Not performed: CT: No costovertebral angle tenderness, symptoms are not consistent with pyelonephritis or ureteral stone, CT scan is not indicated. Care significantly affected by the following chronic conditions: Diabetes. Counseling: I had a detailed discussion with the patient and/or guardian regarding the historical points, exam findings, and any diagnostic results supporting the discharge/admit diagnosis, lab results, the need for outpatient follow up, to return to the emergency department if symptoms worsen or persist or if there are any questions or concerns that arise at home. Response to treatment: the patient's symptoms have markedly improved after treatment. 06/15 08:56 Order name: CBC with Diff; Complete Time: 10:11 rt 06/15 08:56 Order name: CMP; Complete Time: 10:11 rt 06/15 08:56 Order name: Urinalysis w/ reflexes; Complete Time: 10:11 rt 06/15 09:56 Order name: Urine Culture EDNY 06/15 08:56 Order name: IV Saline Lock; Complete Time: 08:57 rt 06/15 08:56 Order name: Labs collected and sent; Complete Time: 09:04 rt Administered Medications: 09:04 Drug: NS 0.9% IV 1000 ml IV at 1 bolus Per protocol; 1000 mL bolus Route: IV; Rate: 1 ko1 bolus; Site: left antecubital; 10:00 Follow up: Response: No adverse reaction; IV Status: Completed infusion; IV Intake: ko1 1000ml 09:04 Drug: Ciprofloxacin IVPB 400 mg 200 ml IVPB once over 60 mins Volume: 200 ml; Route: ko1 IVPB; Infused Over: 60 mins; Site: left antecubital; 10:00 Follow up: Response: No adverse reaction; IV Status: Completed infusion; IV Intake: ko1 200ml Disposition Summary: 06/16/23 10:13 Discharge Ordered Notes: Location: Home rt Problem: new rt Symptoms: have improved rt Condition: Stable rt Diagnosis - UTI/ Urinary tract infection, site not specified rt Followup: rt - With: Private Physician - When: 2 - 3 days - Reason: Discharge Instructions: - Discharge Summary Sheet rt - Urinary Tract Infection, Adult rt Forms: - Medication Reconciliation Form rt - Thank You Letter rt - Antibiotic Education rt - Prescription Opioid Use rt - Patient Portal Instructions rt - Leadership Thank You Letter rt Prescriptions: - Cipro 500 mg Oral Tablet - take 1 tablet ORAL route every 12 hours for 7 days; 14 tablet; Refills: 0, rt Product Selection Permitted Signatures: Dispatcher [employer] [facility] Beulah Dunlap RN RN hb Oliver, Kathy, RN RN ko1 Jaime Wood MD MD rt Corrections: (The following items were deleted from the chart) 08:32 08:31 Home Meds: lisinopril 20 mg Oral tab once daily; raquel hb
[2023-06-16 10:43] VITALS: BP 140/84; TEMP 98.3; O2SAT 99
== END ==
LOC: ER 08:14
DX: N39.0 Urinary tract infection, site not specified (principal); Z88.0 Allergy status to penicillin
CPT/HCPCS: 87088; 85025; 81001; 87086; 36415; 80053; J0744; J7030